=== PATIENT | male | born 1950 | race Caucasian/White ===

== ENCOUNTER 2019-04-05 22:21 | Emergency (ER) | payer OTHER ==
[~2019-04-05] VITALS: Ht 182.9 cm; Wt 84.4 kg
--- OUTSIDE RECORDS SUMMARY | 2019-04-05 22:24 | XMS REPORT | Summary of Care ---
Author Author [facility] Address Unknown Phone Unavailable Encounter HQ Encntr_alias(FIN) [id number] Date(s): 12/08/15 - 12/08/15 [address] [place], [place] [address] Discharge Disposition: Home Attending Physician: Eric Arrington MD Referring Physician: Eric Arrington MD Vital Signs No data available for this section Problem List No data available for this section Allergies, Adverse Reactions, Alerts Substance Reaction Severity Status NKDA Active Medications No data available for this section Results No data available for this section Immunizations No data available for this section Procedures No data available for this section Social History Social History Type Response Smoking Status Never smoker; Exposure to Tobacco Smoke None; Cigarette Smoking Last 365 Days No; Reg Smoking Cessation Counseling No Assessment and Plan No data available for this section
--- OUTSIDE RECORDS SUMMARY | 2019-04-05 22:24 | XMS REPORT | CCD ---
Author Author Auto Generated Organization [facility] Address Unknown Phone Unavailable Care Team Providers Care Hand Tool Filer Name Role Phone Eric Arrington RP Allergies, Adverse Reactions, Alerts Substance Reaction Status NKDA Active
--- OUTSIDE RECORDS SUMMARY | 2019-04-05 22:24 | XMS REPORT | Summary of Care ---
Author Organization Unknown Address Unknown Phone Unavailable Encounter HQ Asaf_kale(CLIVE) [id number] Date(s): 03/25/14 - 03/25/[address] [address] [facility] Discharge Disposition: Home Physician Attending: Eric Arrington MD Physician_Referring: Eric Arrington MD Reason for Visit F/U Vital Signs Most recent to 1 oldest [Reference Range]: Height 182.88 cm (03/25/14 3:11 PM) Systolic Blood 132 mmHg Pressure [90-140 (03/25/14 3:11 PM) mmHg] Diastolic Blood 77 mmHg Pressure [60-90 (03/25/14 3:11 PM) mmHg] Respiratory Rate 16 BRMIN [14-20 BRMIN] (03/25/14 3:11 PM) Peripheral Pulse 64 bpm Rate [60-100 bpm] (03/25/14 3:11 PM) Weight 98.636 kg (03/25/14 3:11 PM) Body Mass Index 29.49 m2 (03/25/14 3:11 PM) Problem List No data available for this section Allergies, Adverse Reactions, Alerts Substance Reaction Severity Status NKDA Active Medications No data available for this section Medications Administered During Your Visit No data available for this section Immunizations No data available for this section Social History Social History Type Response Smoking Status Never smoker, Exposure to Tobacco Smoke None, Cigarette Smoking Last 365 Days No, Reg Smoking Cessation Counseling No
--- OUTSIDE RECORDS SUMMARY | 2019-04-05 22:24 | XMS REPORT | Summary of Care ---
Author Author [facility] Address Unknown Phone Unavailable Encounter HQ Encntr_alias(FIN) [id number] Date(s): 10/04/16 - 10/04/16 [address] [place], [place] [address] Discharge Disposition: Home or Self Care Attending Physician: Eric Arrington MD Referring Physician: [...]
--- OUTSIDE RECORDS SUMMARY | 2019-04-05 22:24 | XMS REPORT | Summary of Care ---
Author Organization Unknown Address Unknown Phone Unavailable Encounter HQ Encntr_kale([facility]) [id number] Date(s): 02/11/14 - 02/11/[address] [address] [place] Discharge Disposition: Home Physician Attending: Eric Arrington MD Physician_Referring: Eric Arrington MD Reason for Visit Problem List No data available for this section Allergies, Adverse Reactions, Alerts Substance Reaction Severity Status NKDA Active Medications No data available for this section Medications Administered During Your Visit No data available for this section Immunizations No data available for this section
--- OUTSIDE RECORDS SUMMARY | 2019-04-05 22:24 | XMS REPORT | Clinical Summary ---
Author Author [facility] Address Unknown Phone Unavailable Care Team Providers Care Coordinate Measuring Machine Technician Name Role Phone Asked, No Pcp PCP Unavailable Allergies No Known Allergies Medications End Date Status Medication Sig Dispensed Refills Start Date Active glipiZIDE (GLUCOTROL) 10 Take 10 mg by 0 MG tablet mouth 2 (two) times a day before meals. Active clindamycin (CLEOCIN) 300 Take 300 mg 0 MG capsule by mouth 3 (three) times a day. Active lisinopril Take 2.5 mg 0 (PRINIVIL,ZESTRIL) 2.5 MG by mouth tablet daily. Active rOPINIRole (REQUIP) 0.5 Take 0.5 mg 0 MG tablet by mouth 3 (three) times a day. Active atorvastatin (LIPITOR) 40 Take 40 mg by 0 MG tablet mouth every evening. Active atenolol (TENORMIN) 50 MG Take 50 mg by 0 tablet mouth daily. Active mupirocin (BACTROBAN) 2 % Apply 0 cream topically 3 (three) times a day. Active ketoconazole (NIZORAL) 2 Apply 0 % cream topically daily. Active metFORMIN (GLUCOPHAGE) Take 1,000 mg 0 1000 MG tablet by mouth 2 (two) times a day with meals. Active lisinopril Take 5 mg by 0 (PRINIVIL,ZESTRIL) 5 mg mouth every tablet morning. 10/24/2018 Discontinued carbidopa-levodopa Take 1 tablet 0 (SINEMET) 25-100 mg per by mouth 3 tablet (three) times a day. 10/31/2018 Discontinued cholecalciferol, vitamin Take by 0 D3, (VITAMIN D3 ORAL) mouth. 10/31/2018 Discontinued aspirin (ECOTRIN) 81 MG Take 81 mg by 0 enteric coated tablet mouth daily. 10/31/2018 Discontinued docosahexanoic acid/epa Take by 0 (FISH OIL ORAL) mouth. 10/31/2018 Discontinued multivitamin with Take 1 tablet 0 minerals tablet by mouth daily. 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 Pre-Admit Pre-Admission Testing Testing Appointment Teo Langford MD Spastic quadriparesis (HCC) (Primary Dx) 10/11/2018 Transcribe Neurosurgery Orders Teo Langford MD Spastic quadriparesis (HCC) (Primary Dx); Malfunction of intrathecal infusion pump, initial encounter 10/08/2018 Office Visit Neurosurgery after 04/04/2018 Social History Date Tobacco Use Types Packs/Day Years Used Never Smoker Smokeless Tobacco: Never Used Alcohol Use Drinks/Week oz/Week Comments No Sex Assigned at Date Recorded Not on file Industry Job Start Date Occupation Not on file Not on file Not on file Travel End Travel History Travel Start No recent travel history available. Last Filed Vital Signs Time Taken Vital Sign Reading 10/24/2018 11:05 AM LAPPING MACHINE TENDER Blood Pressure 168/70 10/24/2018 10:40 AM LAPPING MACHINE TENDER Pulse 58 10/24/2018 10:40 AM LAPPING MACHINE TENDER Temperature 36.4 C (97.6 F) 10/24/2018 10:40 AM LAPPING MACHINE TENDER Respiratory Rate 16 10/24/2018 10:40 AM LAPPING MACHINE TENDER Oxygen Saturation 99% - Inhaled Oxygen - Concentration 10/23/2018 12:00 PM LAPPING MACHINE TENDER Weight 87.5 kg (193 lb) 10/23/2018 12:00 PM LAPPING MACHINE TENDER Height 182.9 cm (6') 10/23/2018 12:00 PM LAPPING MACHINE TENDER Body Mass Index 26.18 Plan of Treatment Health Maintenance Due Date Last Done Comments COLONOSCOPY SCREENING 2000 SHINGLES VACCINES (#1) 2000 65+ PNEUMOCOCCAL VACCINE 11/10/2015 06/20/2016, 06/01/2015 (2 of 2 - PPSV23) INFLUENZA VACCINE 04/11/2019 05/16/2018, 05/18/2017, 05/10/2016, Additional history exists Implants Device Identifier Shelf Expiration Date Model / Serial / Lot Implanted Type Area Manufactur er 09/07/2017 [id number] / [id number] / [id number] Pump Infsn Synchromed Ii W/ Fltr Neurosurgi Right: Abdomen, [employer] Sut Loop Prgrmbl Rsvr 40ml - emmy Lower Quadrant NEUROMODUL [id number] - [id number] Implants ATION Implanted: Qty: 1 on 04/05/2016 by Danyel Greer Jr., MD Procedures Comments Procedure Name Priority Date/Time Associated Diagnosis ECG PRE/POST OP Routine 10/24/2018 Preop testing 10:58 AM LAPPING MACHINE TENDER ESTIMATED GFR Routine 10/24/2018 10:47 AM LAPPING MACHINE TENDER HEMOGLOBIN A1C Routine 10/24/2018 Preop testing 10:47 AM LAPPING MACHINE TENDER COMPREHENSIVE METABOLIC Routine 10/24/2018 Preop testing PANEL 10:47 AM LAPPING MACHINE TENDER HC COMPLETE BLD COUNT Routine 10/24/2018 Preop testing W/AUTO DIFF 10:47 AM LAPPING MACHINE TENDER after 04/04/2018 Results * ECG Pre/Post Op (10/24/2018 10:58 AM LAPPING MACHINE TENDER) Ventricular 51 [facility] rate Atrial rate 51 [facility] OR interval 152 [facility] QRSD interval 100 [facility] QT interval 412 [facility] QTC interval 379 [facility] P axis 1 29 [facility] QRS axis 1 -26 [facility] T wave axis 49 [facility] EKG impression Sinus bradycardia-Otherwise [facility] normal ECG-No previous ECGs available- Specimen Narrative Performed At Performing Organization Address City/State/Zipcode Phone Number [facility] MUSE [address] [place] [address] * Estimated GFR (10/24/2018 10:47 AM LAPPING MACHINE TENDER) Estimated GFR >=90 mL/min/1.73 m2 DRIFT Comment: [facility] rpretation G1 >=90 Normal or high G2 60-89Mildly decreased [id number] Mildly to moderately decreased [id number] Moderately to severely decreased G4 15-29Severely decreased G5 <15Kidney failure The eGFR was calculated using the Chronic Kidney Disease Epidemiology Collaboration (CKD-EPI) equation. Interpretation is based on recommendations of the National Kidney Foundation-Kidney Disease Outcomes Quality Initiative (NKF-KDOQI) published in 2014. Specimen Plasma specimen Performing Organization Address City/State/Zipcode Phone Number [facility] [place] [address] [place] [address] PATHOLOGY AND GENOMIC MEDICINE [id number] [place] [address] * CBC with platelet and differential (10/24/2018 10:47 AM LAPPING MACHINE TENDER) WBC 10.75 4.50 - 11.00 k/uL [facility] RBC 4.06 (L) 4.40 - 6.00 m/uL [facility] HGB 12.4 (L) 14.0 - 18.0 g/dL [facility] HCT 38.4 (L) 41.0 - 51.0 % [facility] MCV 94.6 82.0 - 100.0 fL [facility] MCH 30.5 27.0 - 34.0 pg [facility] MCHC 32.3 31.0 - 37.0 g/dL [facility] RDW - SD 46.9 37.0 - 55.0 fL [facility] MPV 10.3 8.8 - 13.2 fL [facility] Platelet count 307 150 - 400 k/uL [facility] Nucleated RBC 0.00 /100 WBC [facility] Neutrophils 76.3 (H) 39.0 - 69.0 % [facility] Lymphocytes 14.3 (L) 25.0 - 45.0 % [facility] Monocytes 7.3 0.0 - 10.0 % [facility] Eosinophils 0.9 0.0 - 5.0 % [facility] Basophils 0.6 0.0 - 1.0 % [facility] Immature 0.6Comment: "Immature 0.0 - 1.0 % DRIFT granulocytes granulocytes" (promyelocytes, [facility] myelocytes, metamyelocytes) HOSPITAL Specimen Blood Performing Organization Address City/State/Zipcode Phone Number [facility] [place]PARTMENT [address] [place] [address] PATHOLOGY AND GENOMIC MEDICINE [address] [address] [facility] * Hemoglobin A1c (10/24/2018 10:47 AM LAPPING MACHINE TENDER) Hemoglobin A1C 9.2 (H) 4.0 - 5.6 % DRIFT Comment: [place] HbA1c cutoffs for diagnosing HOSPITAL diabetes: 4.0% - 5.6%=normal 5.7% - 6.4%=increased risk for diabetes (prediabetes) >=6.5%=diabetes Goals for glycemic control (ADA 2016) < 7.0%Target for non adults with diabetes. More or less stringent targets may be appropriate for individual patients. <7.5% Target for Children and adolescents with type 1 diabetes. Specimen Blood Performing Organization Address City/State/Zipcode Phone Number [facility] DEPARTMENT OF [address] [place] [address] PATHOLOGY AND GENOMIC MEDICINE [address] [address] [facility] * Comprehensive metabolic panel (10/24/2018 10:47 AM LAPPING MACHINE TENDER) Sodium 133 (L) 135 - 148 mEq/L [facility] Potassium 4.2 3.5 - 5.0 mEq/L [facility] Chloride 95 (L) 98 - 112 mEq/L [facility] CO2 28 24 - 31 mEq/L [facility] Anion gap 10@ANIO 7 - 15 mEq/L [facility] BUN 13 8 - 23 mg/dL [facility] Creatinine 0.67 (L) 0.70 - 1.20 mg/dL [facility] Glucose 225 (H) 65 - 99 mg/dL [facility] Calcium 9.5 8.8 - 10.2 mg/dL [facility] Protein 6.9 6.3 - 8.3 g/dL DRIFT Comment: [facility] HOSPITAL 4.6-7.0 g/dL 1 week 4.4-7.6 g/dL 7 months-1year 5.1-7.3 g/dL 1-2 years5.6-7 .5 g/dL >3 years6.0-8 .0 g/dL 18-150 6.3-8.3 g/dL Albumin 3.5 3.5 - 5.0 g/dL [facility] A/G ratio 1.0 0.7 - 3.8 [facility] Alkaline 85 40 - 129 U/L DRIFT phosphatase [facility] AST 17 10 - 50 U/L [facility] ALT 20 5 - 50 U/L [facility] Total bilirubin 0.8 0.0 - 1.2 mg/dL [facility] Specimen Plasma specimen Performing Organization Address City/State/Zipcode Phone Number [facility] [place]PARTMENT [place] [address] [place] [address] PATHOLOGY AND GENOMIC MEDICINE [address] [address] HOSPITAL after 04/04/2018 Insurance Type Payer Benefit Subscriber ID Effective Phone Address Plan / Dates Group HMO [employer] TEX[employer] xxxxxxxxx 2015-P JULIA chaney Advance Directives Patient has advance care planning documents on file. For more information, juanjose webb contact: [facility] [address]
--- OUTSIDE RECORDS SUMMARY | 2019-04-05 22:24 | XMS REPORT | Summary of Care ---
Author Organization Unknown Address Unknown Phone Unavailable Encounter HQ Encntr_alisis([facility]) [id number] Date(s): 01/07/15 - 01/07/[address] Discharge Disposition: Home Physician Attending: Eric Arrington MD Physician_Referring: Eric Arrington MD Vital Signs No data [...]
--- OUTSIDE RECORDS SUMMARY | 2019-04-05 22:24 | XMS REPORT | Summary of Care ---
Author Author [facility] Organization [facility] Address Unknown Phone Unavailable Encounter HQ Susan(FIN) [id number] Date(s): 10/23/18 - 10/23/18 [id number] [place], [place] [address] Discharge Disposition: Home or Self Care Attending Physician: Eric Arrington MD Referring Physician: Eric Arrington MD Vital Signs Most recent to 1 oldest [Reference Range]: Height 182.88 cm (10/23/18 1:35 PM) Blood Pressure 177/75 mmHg [90-140/60-90 mmHg] *HI* (10/23/18 1:35 PM) Respiratory Rate 20 BRMIN [14-20 BRMIN] (10/23/18 1:35 PM) Peripheral Pulse 65 bpm Rate [60-100 bpm] (10/23/18 1:35 PM) Weight 87.727 kg (10/23/18 1:35 PM) Body Mass Index 26.23 m2 (10/23/18 1:35 PM) Problem List Condition Effective Dates Status Health Status Informant Skin rash(Confirmed) Active Spasticity(Confirmed Active ) Neuropathy(Confirmed Active ) Quadriplegia, C1-C4 Active incomplete(Confirmed ) Frequent Active falls(Confirmed) Other muscle Active spasm(Confirmed) Allergies, Adverse Reactions, Alerts Substance Reaction Severity Status NKDA Active Medications Requip 2 mg oral tablet 2 mg=1 tab, PO, TID Start Date: 10/23/18 Status: Ordered Results No data available for this section Immunizations No data available for this section Procedures No data available for this section Social History Social History Type Response Smoking Status Never smoker; Exposure to Tobacco Smoke None; Cigarette Smoking Last 365 Days No; Reg Smoking Cessation Counseling No entered on: 10/23/18 Assessment and Plan No data available for this section
--- OUTSIDE RECORDS SUMMARY | 2019-04-05 22:24 | XMS REPORT | Summary of Care ---
Author Organization Unknown Address Unknown Phone Unavailable Encounter HQ Encntr_alias([facility]) [id number] Date(s): 12/23/14 - 12/23/[address] Discharge Disposition: Home Physician Attending: Eric [...]
--- OUTSIDE RECORDS SUMMARY | 2019-04-05 22:24 | XMS REPORT | Summary of Care ---
Author Author [facility] Address Unknown Phone Unavailable Encounter HQ Asaf_kale(FIN) [id number] Date(s): 08/29/17 - 08/29/17 [address] [place], [place] [address] [phone] Discharge Disposition: Home or Self Care Attending Physician: Eric Arrington MD Referring Physician: Eric Arrington MD Vital Signs No data available for this section Problem List Condition Effective Dates Status Health Status Informant Spasticity(Confirmed Active ) Neuropathy(Confirmed Active ) Quadriplegia, C1-C4 Active incomplete(Confirmed ) Frequent Active falls(Confirmed) Allergies, Adverse Reactions, Alerts Substance Reaction Severity [...]
--- OUTSIDE RECORDS SUMMARY | 2019-04-05 22:24 | XMS REPORT | Summary of Care ---
Author Author [facility] Organization [facility] Address Unknown Phone Unavailable Encounter HQ Asaf_kale(FIN) [id number] Date(s): 08/17/18 - 08/17/18 [facility] [address] [place] [address]- [phone] Encounter Diagnosis Cramp and spasm (Final) - 08/23/18 Other injury of unspecified body region, sequela (Final) - Discharge Disposition: Home or Self Care Attending Physician: Eric Arrington MD Referring Physician: Eric Arrington MD Vital Signs No data available for this section Problem List Condition Effective Dates Status Health Status Informant Skin rash(Confirmed) Active Spasticity(Confirmed Active ) Neuropathy(Confirmed Active ) Quadriplegia, C1-C4 Active incomplete(Confirmed ) Frequent Active falls(Confirmed) Other muscle Active spasm(Confirmed) Allergies, Adverse Reactions, Alerts No Known Medication Allergies Medications No data available for this section [...]
--- OUTSIDE RECORDS SUMMARY | 2019-04-05 22:24 | XMS REPORT | Continuity of Care Document ---
Author Author [facility] Address Unknown Phone Unavailable Care Team Providers Care Metal Stamping Machine Operator Name Role Phone [employer] Unavailable Unavailable Problems Problem Status Onset Date Classification Date Reported Comments Source Cramp and spasm 08/24/2018 03/07/2019 [facility] REFILL: 2000/20 ML AD: 02/11/19 Active 08/24/2018 [facility] 2000/20 ML AD: 02/11/19 Active 08/23/2018 [facility] FOLLOW UP Active 08/20/2018 [facility] REFILL 2000/20ML AD: 02/28/19 Active 02/20/2018 [facility] REFILL 2000/20ML AD: 02/23/18 Active 08/30/2017 [facility] REFILL 2000/40ML AD: 09/15/2017 Active 03/22/2017 [facility] 2000/20 ALARM DATE 03/31/17 Active 10/06/2016 [facility] SPA RE-EVAL Active 09/11/2016 [facility] 2000/20 Active 12/08/2015 [facility] DOSE ADJUSTMENT Active 12/23/2014 [facility] PUMP REFILL Active 02/11/2014 [facility] F/U Active 02/10/2014 [facility] SPASTICITY Active 03/15/2013 [facility] Spasticity Active Problem 03/07/2019 [facility] Neuropathy Active Problem 03/07/2019 [facility] Quadriplegia, C1-C4 incomplete Active Problem 03/07/2019 [facility] Frequent falls Active Problem 03/07/2019 [facility] Other injury of unspecified body region, sequela 03/07/2019 [facility] Skin rash Active Problem 03/07/2019 [facility] Other muscle spasm Active Problem 03/07/2019 [facility] FOLLOW-UP EXAM NOS Active [facility] OTHER MUSCLE SPASM Active [facility] OTHER ABNORMAL INVOLUNTARY MOVEMENTS Active [facility] Medications Medication Details Route Status Patient Instructions Ordering Provider Order Date Source ropinirole 2 MG Oral Tablet [Requip] 2 mg=1 tab, PO, TID Active 10/23/2018 [facility] 24 HR Metformin hydrochloride 1000 MG Extended Release Tablet 1,000 mg=1 tab, PO, BID, # 120 tab, 0 Refill(s) Active 06/03/2015 [facility] Home Medication Carbadopa Levadopa 25/100mg PO BID, Refill(s) 0Special Instructions: Carbadopa Levadopa 25/100mg PO BID Active 06/03/2015 [facility] Atenolol 50 MG Oral Tablet 50 mg=1 tab, PO, Daily, # 30 tab, 0 Refill(s) Active 06/03/2015 [facility] Glipizide 10 MG Oral Tablet 10 mg=1 tab, PO, Before Breakfast, # 30 tab, 0 Refill(s) Active 06/03/2015 [facility] Allergies, Adverse Reactions, Alerts Substance Category Reaction Severity Reaction type Status Date Reported Comments Source No Known Medication Allergies Assertion Drug allergy [facility] Immunizations No Data Provided for This Section Results No Data Provided for This Section Pathology Reports No Data Provided for This Section Diagnostic Reports No Data Provided for This Section Consultation Notes No Data Provided for This Section Discharge Summaries No Data Provided for This Section History and Physicals No Data Provided for This Section Vital Signs Vital Sign Value Date Comments Source Height 182.88 cm 10/23/2018 [facility] BMI Calculated 26.23 10/23/2018 [facility] Weight 87.727 10/23/2018 [facility] Heart Rate 65 10/23/2018 [facility] Respitory Rate 20 10/23/2018 [facility] Systolic (mm Hg) 177 10/23/2018 [facility] Diastolic (mm Hg) 75 10/23/2018 [facility] Heart Rate 61 10/25/2016 [facility] Systolic (mm Hg) 158 10/25/2016 [facility] Diastolic (mm Hg) 87 10/25/2016 [facility] Height 182.88 cm 10/25/2016 [facility] Weight 95 10/25/2016 [facility] BMI Calculated 28.4 10/25/2016 [facility] Heart Rate 73 10/25/2016 [facility] Systolic (mm Hg) 174 10/25/2016 [facility] Diastolic (mm Hg) 90 10/25/2016 [facility] Respitory Rate 20 10/25/2016 [facility] Height 182.88 cm 06/03/2015 [facility] Respitory Rate 18 06/03/2015 [facility] Weight 90 06/03/2015 [facility] BMI Calculated 26.91 06/03/2015 [facility] Systolic (mm Hg) 142 06/03/2015 [facility] Diastolic (mm Hg) 87 06/03/2015 [facility] Heart Rate 69 06/03/2015 [facility] Systolic (mm Hg) 132 03/25/2014 [facility] Respitory Rate 16 03/25/2014 [facility] Diastolic (mm Hg) 77 03/25/2014 [facility] Heart Rate 64 03/25/2014 [facility] BMI Calculated 29.49 03/25/2014 [facility] Weight 98.636 03/25/2014 [facility] Height 182.88 cm 03/25/2014 [facility] Encounters Location Location Details Encounter Type Encounter Number Reason For Visit Attending Provider ADM Date DC Date Status Source Outpatient [id number] [facility] 11/01/2011 Active [facility] Outpatient [id number] [facility] 04/17/2012 Active [facility] Outpatient [id number] [facility] 10/02/2012 Active [facility] Outpatient [id number] [facility] 03/20/2013 Active [facility] Outpatient [id number] [facility] 08/27/2013 Active [facility] Outpatient [id number] [facility] 02/11/2014 02/12/2014 [facility] Outpatient [id number] [facility] 03/25/2014 03/26/2014 [facility] [place] [facility] Outpatient [id number] [facility] 07/29/2014 07/30/2014 [facility] [place] [facility] Outpatient [id number] [facility] 12/23/2014 12/24/2014 [facility] [place] [facility] Outpatient [id number] [facility] 01/07/2015 01/08/2015 [facility] Outpatient [id number] [facility] 06/03/2015 06/04/2015 [facility] Outpatient [id number] [facility] 06/24/2015 06/25/2015 [facility] Outpatient [id number] [facility] 12/08/2015 12/09/2015 [facility] Outpatient [id number] [facility] 10/04/2016 10/05/2016 [facility] Outpatient [id number] [facility] 10/25/2016 10/26/2016 [facility] Outpatient [id number] [facility] 03/21/2017 03/22/2017 [facility] Outpatient [id number] [facility] 08/29/2017 08/30/2017 [facility] Outpatient [id number] [facility] 02/16/2018 02/17/2018 [facility] TR Baclofen Related (BACR) Outpatient [id number] [facility] 08/17/2018 08/18/2018 [facility] Outpatient [id number] [facility] 10/23/2018 10/24/2018 [facility] TR Baclofen Related (BACR) Outpatient [id number] [facility] 02/05/2019 02/06/2019 [facility] Procedures No Data Provided for This Section Assessment and Plan No Data Provided for This Section Plan of Care No Data Provided for This Section Social History Social History Date Source Social History TypeResponse Smoking Status Never smoker; Exposure to Tobacco Smoke None; Cigarette Smoking Last 365 Days No; Reg Smoking Cessation Counseling No entered on: 10/23/18 10/23/2018 [facility] Family History No Data Provided for This Section Advance Directives No Data Provided for This Section Functional Status No Data Provided for This Section
--- OUTSIDE RECORDS SUMMARY | 2019-04-05 22:24 | XMS REPORT | Summary of Care ---
Author Author [facility] Address Unknown Phone Unavailable Encounter HQ Asaf_kale(FIN) [id number] Date(s): 10/25/16 - 10/25/16 [facility] [address] [place], [place] [address] Discharge Disposition: Home or Self Care Attending Physician: Eric Arrington MD Referring Physician: Eric Arrington MD Vital Signs Most recent to 1 2 oldest [Reference Range]: Height 182.88 cm (10/25/16 3:42 PM) Blood Pressure 158/87 mmHg 174/90 mmHg [90-140/60-90 mmHg] *HI* *HI* (10/25/16 4:16 PM) (10/25/16 3:42 PM) Respiratory Rate 20 BRMIN [14-20 BRMIN] (10/25/16 3:42 PM) Peripheral Pulse 61 bpm 73 bpm Rate [60-100 bpm] (10/25/16 4:16 PM) (10/25/16 3:42 PM) Weight 95 kg (10/25/16 3:42 PM) Body Mass Index 28.4 m2 (10/25/16 3:42 PM) Problem List Condition Effective Dates Status Health Status Informant Spasticity(Confirmed Active ) Neuropathy(Confirmed Active ) Quadriplegia, C1-C4 Active incomplete(Confirmed ) Frequent Active falls(Confirmed) Allergies, Adverse Reactions, Alerts Substance Reaction Severity Status NKDA Active Medications No Known Medications Results No data available for this section Immunizations No data available for this section Procedures No data available for this section Social History Social History Type Response Smoking Status Never smoker; Exposure to Tobacco Smoke None; Cigarette Smoking Last 365 Days No; Reg Smoking Cessation Counseling No Assessment and Plan No data available for this section
--- OUTSIDE RECORDS SUMMARY | 2019-04-05 22:24 | XMS REPORT | Summary of Care ---
Author Author [facility] Address Unknown Phone Unavailable Encounter HQ Encntr_alisis(FIN) [id number] Date(s): 03/21/17 - 03/21/17 [place] [id number] [place], [place] [address] Discharge Disposition: Home or Self Care [...]
--- OUTSIDE RECORDS SUMMARY | 2019-04-05 22:24 | XMS REPORT | CCD ---
Author Author Auto Generated Organization [facility] Address Unknown Phone Unavailable Care Team Providers Care Ambulance Assistant Name Role Phone Eric Arrington RP Allergies, Adverse Reactions, Alerts Substance Reaction Status NKDA Active
--- OUTSIDE RECORDS SUMMARY | 2019-04-05 22:24 | XMS REPORT | CCD ---
Author Author Auto Generated Organization [facility] Address Unknown Phone Unavailable Care Team Providers Care Telecom Specialist Name Role Phone Eric Arrington RP Allergies, Adverse Reactions, Alerts Substance Reaction Status NKDA Active
--- OUTSIDE RECORDS SUMMARY | 2019-04-05 22:24 | XMS REPORT | Summary of Care ---
Author Author [facility] Organization [facility] Address Unknown Phone Unavailable Encounter HQ Arenntr_kale(FIN) [id number] Date(s): 02/05/19 - 02/05/19 [facility] [address] [place] [address]- [phone] Discharge Disposition: Home or Self Care Attending [...]
--- OUTSIDE RECORDS SUMMARY | 2019-04-05 22:24 | XMS REPORT | Summary of Care ---
Author Author [facility] Address Unknown Phone Unavailable Encounter HQ Encntr_alias(FIN) [id number] Date(s): 06/24/15 - 06/24/15 [place] [id number] [place] [id number] Discharge Disposition: Home Attending Physician: Eric Arrington [...]
--- OUTSIDE RECORDS SUMMARY | 2019-04-05 22:24 | XMS REPORT | Summary of Care ---
Author Author [facility] Address Unknown Phone Unavailable Encounter MILTON Davis(CLIVE) [id number] Date(s): 06/03/15 - 06/03/[address] [phone] Discharge Disposition: Home Attending Physician: Eric Arrington MD Referring Physician: Eric Arrington MD Vital Signs Most recent to 1 oldest [Reference Range]: Height 182.88 cm (06/03/15 10:35 AM) Most recent to 1 oldest [Reference Range]: Blood Pressure 142/87 mmHg [90-140/60-90 mmHg] *HI* (06/03/15 10:35 AM) Most recent to 1 oldest [Reference Range]: Respiratory Rate 18 BRMIN [14-20 BRMIN] (06/03/15 10:35 AM) Most recent to 1 oldest [Reference Range]: Peripheral Pulse 69 bpm Rate [60-100 bpm] (06/03/15 10:35 AM) Most recent to 1 oldest [Reference Range]: Weight 90 kg (06/03/15 10:35 AM) Most recent to 1 oldest [Reference Range]: Body Mass Index 26.91 m2 (06/03/15 10:35 AM) Problem List No data available for this section Allergies, Adverse Reactions, Alerts Substance Reaction Severity Status NKDA Active Medications atenolol 50 mg oral tablet 50 mg=1 tab, PO, Daily, # 30 tab, 0 Refill(s) Start Date: 06/03/15 Status: Ordered glipiZIDE 10 mg oral tablet 10 mg=1 tab, PO, Before Breakfast, # 30 tab, 0 Refill(s) Start Date: 06/03/15 Status: Ordered Home Medication Carbadopa Levadopa 25/100mg PO BID, Refill(s) 0 Special Instructions: Carbadopa Levadopa 25/100mg PO BID Start Date: 06/03/15 Status: Ordered metFORMIN 1000 mg oral tablet, extended release 1,000 mg=1 tab, PO, BID, # 120 tab, 0 Refill(s) Start Date: 06/03/15 Status: Ordered Results No data available for [...]
--- OUTSIDE RECORDS SUMMARY | 2019-04-05 22:24 | XMS REPORT | Summary of Care ---
Author Author [facility] Organization [facility] Address Unknown Phone Unavailable Encounter HQ Encntr_alisis(FIN) [id number] Date(s): 02/16/18 - 02/16/18 [place] [address] [place], [place] [address] Discharge Disposition: Home or Self Care Attending [...] Reg Smoking Cessation Counseling No entered on: 10/25/16 Assessment and Plan No data available for this section
--- OUTSIDE RECORDS SUMMARY | 2019-04-05 22:24 | XMS REPORT | CCD ---
Author Author Auto Generated Organization [facility] Address Unknown Phone Unavailable Care Team Providers Care Continuous Pickling Line Pickler Name Role Phone Eric Arrington RP Allergies, Adverse Reactions, Alerts Substance Reaction Status NKDA Active
[2019-04-06] MEDS ORDERED: CEFTRIAXONE SOD 1 GM VIAL IV SCH (00:15)
[2019-04-06] MEDS ORDERED: SODIUM CHLORIDE 0.9% 100 ML 100 ML ONE (01:19)
[2019-04-06] MEDS ORDERED: CEFTRIAXONE SOD 1 GM VIAL ONE (01:19)
--- NOTE | 2019-04-06 01:19 | Diagnostic Imaging Report ---
EXAM: Left Lower Extremity Venous Duplex Ultrasound INDICATION: ^[id number] ^[id number] COMPARISON: None TECHNIQUE: Dueñas scale, color Doppler and spectral waveform analysis of the left lower extremity deep venous system was performed. FINDINGS: Common Femoral: Fully compressible with normal spontaneous waveforms. Proximal Greater Saphenous: Fully compressible. Femoral: Fully compressible with normal spontaneous waveforms. Normal response to augmentation. Proximal Deep Femoral: Normal spontaneous waveforms. Popliteal: Fully compressible with normal spontaneous waveforms. IMPRESSION: No evidence of deep venous thrombosis above the left calf. Signed by: Dr. Kodak Wetzel MD on 04/06/2019 1:16 AM
== END 2019-04-06 01:41 | disposition home or self-care (01) ==
LOC: FSED 22:21
DX: L03.116 Cellulitis of left lower limb (principal)
CPT/HCPCS: 80053; 85025; 87040; 93971; 99284; J0696

== ENCOUNTER 2019-11-19 19:25 | Emergency (ER) | payer MEDICARE, OTHER ==
[~2019-11-19] VITALS: Ht 182.9 cm; Wt 84.4 kg
--- OUTSIDE RECORDS SUMMARY | 2019-11-19 19:28 | XMS REPORT ---
Author Author [facility] Address Unknown Phone Unavailable Care Team Providers Care Torch Heater Name Role Phone NANDO PHILLIPS Unavailable Unavailable KAUSHAL MATA Unavailable Unavailable Problems This patient has no known problems. Allergies, Adverse Reactions, Alerts This patient has no known allergies or adverse reactions. Medications This patient has no known medications. Results Test Description Test Time Test Comments Text Results Atomic Results Result Comments TISSUE EXAM 2019-07-01 17:37:00 Surgical Pathology Report Case: [id number] Authorizing Provider: Luis Phillips MD Collected: 06/21/2019 1426 Ord ering Location: [facility] Received: 06/21/2019 1515 SERVICES Pathologist: Dawit Downs MD Specimen: Explant, For Identification only VERTEBRAL COLUMN, REMOVAL:DORSAL COLUMN STIMULATOR DEVICE (GROSS EXAMINATION ONLY) Signing Pathologist Direct Phone Line: [phone] signed by Dawit Downs MD on 07/01/2019 at 5:37 [id number], for identification onlyThe specimen is a metal plastic device from [employer]. It is 5 x 5 x 5 up to 0.6 cm and bears the number [id number]. Gross only. HL/pl POCT-GLUCOSE METER 2019-06-21 16:46:00 POC-GLUCOSE METER (BEAKER) (test toju=8204) 124 mg/dL 70-110 TESTED AT [facility] [address] [place] [id number] BASIC METABOLIC [id number] 08:56:00* Test Item Value Reference Range Comments SODIUM (BEAKER) (test ifiy=448) 136 meq/L 136-145 POTASSIUM (BEAKER) (test lvwz=067) 4.4 meq/L 3.5-5.1 Specimen slightly hemolyzed CHLORIDE (BEAKER) (test efdf=038) 99 meq/L 98-107 CO2 (BEAKER) (test wnrw=064) 26 meq/L 22-29 BLOOD UREA NITROGEN (BEAKER) (test golc=121) 10 mg/dL 7-21 CREATININE (BEAKER) (test falr=833) 0.78 mg/dL 0.57-1.25 Specimen slightly hemolyzed GLUCOSE RANDOM (BEAKER) (test cogc=231) 105 mg/dL 70-105 CALCIUM (BEAKER) (test vlmk=827) 9.8 mg/dL 8.4-10.2 EGFR (BEAKER) (test akys=1491) 99 mL/min/1.73 sq m ESTIMATED GFR IS NOT ACCURATE CREATININE CLEARANCE IN PREDICTING GLOMERULAR FILTRATION RATE. ESTIMATED GFR IS NOT APPLICABLE FOR DIALYSIS PATIENTS. POCT-GLUCOSE [id number] 08:23:00* Test Item Value Reference Range Comments POC-GLUCOSE METER (BEAKER) (test rfie=8721) 108 mg/dL 70-110 TESTED AT [facility] [address] [place] [address] EXREMEITY VEINS [id number] 01:13:00 [place] [address] Patient Name: ANGÉLICA QUEEN MR #: [id number] : 1950 Age/Sex: 68/M Req #: [id number] Adm Physician: Ordered by: KAUSHAL MATA MD Report #: [id number] Location: [facility] Room/Bed: Procedure: [id number] HOPD /US EXREMEITY VEINS UNI-HOPD Exam Date: 04/05/19 Exa m Time: 2358 REPORT STATUS: Signed EXAM: Left Lower Extremity Venous Duplex Ultrasound INDICATION: [id number] COMPARISON: None TECHNIQUE: Dueñas scale, color Doppler a nd spectral waveform analysis of the left lower extremity deep venous system w as performed. FINDINGS: Common Femoral: Fully compressible with normal spontaneous waveforms. Proximal Greater Saphenous: Fully co mpressible. Femoral: Fully compressible with normal spontaneous wa veforms. Normal response to augmentation. Proximal Deep Femoral: Normal spontaneous waveforms. Popliteal: Fully compressible wi th normal spontaneous waveforms. IMPRESSION: No evidence of deep v enous thrombosis above the left calf. Signed by: Dr. Kodak Zavala MD on 04/06/2019 1:16 AM Dictated By: KODAK ZAVALA MD 5 Transcribed By: PRICILA on 04/06/19115 COPY TO: KAUSHAL MATA MD
--- NOTE | 2019-11-19 22:00 | Diagnostic Imaging Report ---
EXAM: CT Abdomen and Pelvis without contrast INDICATION: Suprapubic and bilateral flank pain. COMPARISON: None. TECHNIQUE: Abdomen and pelvis were scanned utilizing a multidetector helical scanner from the lung base to the pubic symphysis without administration of IV contrast. Coronal and sagittal reformations were obtained. Renal stone protocol was performed. IV CONTRAST: None. ORAL CONTRAST: None. COMPLICATIONS: None RADIATION DOSE: Total DLP: 737.4 mGy*cm Estimated effective dose: (DLP x 0.015 x size factor) mSv CTDIvol has been reviewed. It is below the limits set by the Radiation Protocol Committee (RPC). FINDINGS: LINES and TUBES: None. LOWER THORAX: Scattered coronary atherosclerosis. HEPATOBILIARY: No evidence of focal lesion. No biliary ductal dilation. GALLBLADDER: Cholelithiasis without evidence of cholecystitis. There is a stone at the gallbladder neck. SPLEEN: No splenomegaly. 2.2 cm hypodense lesion in the spleen, likely a cyst. PANCREAS: No focal masses or ductal dilatation. ADRENALS: No adrenal nodules KIDNEYS/URETERS: No evidence of hydronephrosis or mass. Nonobstructing left mid and lower pole renal stones, measuring up to 4 mm. Mild nonspecific bilateral perinephric stranding. GI TRACT: No evidence of wall thickening or distension. Appendix is normal. Scattered colonic diverticulosis without CT evidence of diverticulitis. Moderate amount of stool in the colon. There is fecalization of distal small bowel loops, which may reflect slow transit. PELVIC ORGANS/BLADDER: Parkinson catheter terminates in a decompressed bladder. Mild wall thickening of the bladder. Prostate calcifications. LYMPH NODES: No lymphadenopathy. VESSELS: There is moderate atherosclerotic disease in the aorta and major arterial branches. PERITONEUM / RETROPERITONEUM: No free air or fluid. BONES AND SOFT TISSUES: No acute osseous abnormality. Right-sided spinal stimulator with lead entering the canal at L1-L2 and extending cranially into the thoracic spine. Moderate to severe degenerative disc and severe facet degenerative changes in the lower lumbar spine. Small fat-containing left inguinal hernia. Per clinical history, the patient is status post right inguinal hernia repair; this likely accounts for 2.0 cm soft tissue density near the right inguinal canal with associated high densities. CONCLUSION: Nonobstructing left sided nephrolithiasis, measuring up to 4 mm. No evidence of hydronephrosis. Poorly catheter within the bladder. Mild wall thickening of the bladder may reflect decompression or cystitis in the appropriate clinical setting. Mild nonspecific bilateral perinephric stranding which may be a normal finding or reflect infectious or inflammatory process in the appropriate clinical setting. Suggest correlation with urinalysis. Cholelithiasis including a small stone near the gallbladder neck without specific evidence of cholecystitis. Furthermore per discussion with referring physician, the patient does not have right upper quadrant pain. The above findings were discussed with Dr. Catalino Driscoll on 11/19/2019 at 9:50 PM, who responded indicating that the communication was understood. Signed by: Dr. Ander Mauricio MD on 11/19/2019 9:57 PM
[2019-11-19 22:26] VITALS: BP 168/78
== END 2019-11-19 22:27 | disposition home or self-care (01) ==
LOC: FSED 19:25
DX: R30.0 Dysuria (principal); N20.0 Calculus of kidney; K40.90 Unilateral inguinal hernia, without obstruction or gangrene, not specified as recurrent; K57.90 Diverticulosis of intestine, part unspecified, without perforation or abscess without bleeding
CPT/HCPCS: 51700; 74176; 81003; 99283

== ENCOUNTER 2020-09-01 18:06 | Inpatient (IN) | payer MEDICARE, OTHER ==
[~2020-09-01] VITALS: Ht 182.9 cm; Wt 84.4 kg
[2020-09-01] MEDS: PIPER-TAZ 3.375 GM 50 ML IV SCH ×2 (00:30→01:00)
[2020-09-01 19:07] LABS: BASOPHILS # (AUTO) 0.1 (0.0-0.1); BASOPHILS % 0.4 % (0.0-1.0); EOSINOPHILS # (AUTO) 0.1 (0.0-0.4); EOSINOPHILS % 0.8 % (0.0-6.0); HEMATOCRIT 33.4 % (38.2-49.6); LYMPHOCYTES # (AUTO) 1.4 (1.0-3.2); LYMPHOCYTES % 11.2 % (18.0-39.1); MEAN CORPUSCULAR HEMOGLOBIN 30.8 pg (28-32); MEAN CORPUSCULAR HGB CONC 32.9 g/dL (31-35); MEAN CORPUSCULAR VOLUME 93.6 fL (81-99); MONOCYTES # (AUTO) 1.2 (0.2-0.8); MONOCYTES % 10.1 % (4.4-11.3); NEUTROPHILS # (AUTO) 9.4 (2.1-6.9); NEUTROPHILS % 76.8 % (38.7-80.0); PLATELET COUNT 378 x10e3/uL (140-360); RED BLOOD COUNT 3.57 x10e6/uL (4.3-5.7)
[2020-09-01 19:17] LABS: INR 0.93; PARTIAL THROMBOPLASTIN TIME 30.6 seconds (23.8-35.5); PROTHROMBIN TIME 12.9 seconds (11.9-14.5)
[2020-09-01 19:27] LABS: ALANINE AMINOTRANSFERASE 24 IU/L (0-55); ALBUMIN 3.5 g/dL (3.5-5.0); ALBUMIN/GLOBULIN RATIO 0.9 (0.8-2.0); ALKALINE PHOSPHATASE 98 IU/L (40-150); ANION GAP 17.3 mmol/L (8-16); BLOOD UREA NITROGEN 24 mg/dL (7-26); BUN/CREATININE RATIO 28 (6-25); CALCIUM 9.2 mg/dL (8.4-10.2); CARBON DIOXIDE 26 mmol/L (22-29); CHLORIDE 96 mmol/L (98-107); CREATININE, SERUM 0.86 mg/dL (0.72-1.25); EST GLOMERULAR FILTRATION RATE > 60 ML/MIN (60-); GLUCOSE 154 mg/dL (74-118); POTASSIUM 4.3 mmol/L (3.5-5.1); SODIUM 135 mmol/L (136-145)
[2020-09-01] MEDS ORDERED: DEXTROSE 50% SYRINGE 50 ML IV PRN (20:00)
[2020-09-01] MEDS ORDERED: SODIUM CHLORIDE 0.9% 1000ML 1,000 ML IV ONE (20:00)
[2020-09-01] MEDS ORDERED: ACETAMINOPHEN 325 MG TAB PO PRN (20:00)
[2020-09-01] MEDS: INSULIN REGULAR, HUMAN 100 UNIT/1 ML 3ML VIAL SQ SCH (21:00)
[2020-09-01 21:50] VITALS: BP 132/60
[2020-09-01] MEDS: VANCOMYCIN 1GM/NS 250 ML 250 ML IV SCH (22:30)
[2020-09-02] VITALS (9 sets, daily range): BP systolic 106–176; BP diastolic 47–87
[2020-09-02] MEDS: PIPER-TAZ 3.375 GM 50 ML IV SCH ×4 (00:30→22:58)
[2020-09-02] MEDS ORDERED: LEVOTHYROXINE50 MCG PO (01:39)
[2020-09-02] MEDS ORDERED: GABAPENTIN300 MG PO (01:39)
[2020-09-02] MEDS ORDERED: METFORMIN HCL1000 MG PO (01:39)
[2020-09-02] MEDS ORDERED: ROPINIROLE HCL1 MG PO (01:39)
[2020-09-02] MEDS ORDERED: LIPITOR20 MG PO (01:39)
[2020-09-02] MEDS ORDERED: TIZANIDINE HCL4 MG PO (01:39)
[2020-09-02] MEDS ORDERED: LISINOPRIL2.5 MG PO (01:39)
[2020-09-02] MEDS ORDERED: LISINOPRIL5 MG PO (01:39)
[2020-09-02] MEDS ORDERED: GLIPIZIDE5 MG PO (01:39)
[2020-09-02] MEDS ORDERED: FENTANYL1 EAC1 TOP (01:39)
[2020-09-02] MEDS ORDERED: JANUVIA100 MG PO (01:39)
[2020-09-02] MEDS ORDERED: PIOGLITAZONE HC15 MG PO (01:39)
[2020-09-02] MEDS ORDERED: ATENOLOL50 MG PO (01:39)
[2020-09-02] MEDS: TIZANIDINE HCL 4 MG TAB PO PRN ×2 (02:10→11:55)
[2020-09-02] MEDS: ROPINIROLE HCL 1 MG TAB PO SCH ×4 (02:12→22:18)
[2020-09-02] MEDS ORDERED: PNEUMOCOCCAL VACCINE POLYVALENT 23 MCG/0.5 ML VIAL IM SCH (04:26)
[2020-09-02] MEDS: ONDANSETRON HCL INJ 2MG/ML 2ML 2 MG/ML VIAL IV PRN (04:55)
[2020-09-02] MEDS: MORPHINE SULFATE INJ 4 MG/ML INJ 1ML IV PRN ×3 (04:55→18:30)
[2020-09-02 04:56] LABS: BASOPHILS % 0.4 % (0.0-1.0); EOSINOPHILS # (AUTO) 0.1 (0.0-0.4); EOSINOPHILS % 1.2 % (0.0-6.0); HEMATOCRIT 29.5 % (38.2-49.6); HEMOGLOBIN 10.1 g/dL (14.0-18.0); LYMPHOCYTES # (AUTO) 1.8 (1.0-3.2); MEAN CORPUSCULAR HEMOGLOBIN 31.7 pg (28-32); MEAN CORPUSCULAR HGB CONC 34.2 g/dL (31-35); MEAN CORPUSCULAR VOLUME 92.5 fL (81-99); MONOCYTES # (AUTO) 1.1 (0.2-0.8); MONOCYTES % 9.9 % (4.4-11.3); NEUTROPHILS # (AUTO) 8.2 (2.1-6.9); NEUTROPHILS % 72.1 % (38.7-80.0); PLATELET COUNT 310 x10e3/uL (140-360); RED BLOOD COUNT 3.19 x10e6/uL (4.3-5.7); RED CELL DISTRIBUTION WIDTH 12.9 % (11.7-14.4)
[2020-09-02 05:13] LABS: ALANINE AMINOTRANSFERASE 18 IU/L (0-55); ALBUMIN 2.8 g/dL (3.5-5.0); ALBUMIN/GLOBULIN RATIO 0.9 (0.8-2.0); ALKALINE PHOSPHATASE 79 IU/L (40-150); ANION GAP 13.2 mmol/L (8-16); BLOOD UREA NITROGEN 20 mg/dL (7-26); BUN/CREATININE RATIO 27 (6-25); CALCIUM 8.3 mg/dL (8.4-10.2); CARBON DIOXIDE 27 mmol/L (22-29); CHLORIDE 100 mmol/L (98-107); CREATININE, SERUM 0.75 mg/dL (0.72-1.25); EST GLOMERULAR FILTRATION RATE > 60 ML/MIN (60-); GLUCOSE 172 mg/dL (74-118); POTASSIUM 4.2 mmol/L (3.5-5.1); SODIUM 136 mmol/L (136-145)
[2020-09-02] MEDS: INSULIN REGULAR, HUMAN 100 UNIT/1 ML 3ML VIAL SQ SCH ×4 (08:00→21:00)
[2020-09-02] MEDS: VANCOMYCIN 1GM/NS 250 ML 250 ML IV SCH ×2 (08:58→22:18)
[2020-09-02] MEDS: HEPARIN SOD (PORCINE) 5,000 UNIT/ML VIAL SC SCH ×2 (09:00→22:46)
[2020-09-02] MEDS ORDERED: FENTANYL 50 MCG/HR PATCH TOP SCH (15:00)
[2020-09-02] MEDS: GABAPENTIN 300 MG CAP PO SCH ×2 (15:12→22:18)
[2020-09-02] MEDS: FENTANYL 25 MCG/HR PATCH TOP SCH (17:43)
[2020-09-02] MEDS: LISINOPRIL 2.5 MG TAB PO SCH (22:18)
[2020-09-03] VITALS (8 sets, daily range): BP systolic 136–164; BP diastolic 63–73
[2020-09-03] MEDS: MORPHINE SULFATE INJ 4 MG/ML INJ 1ML IV PRN ×3 (02:29→19:12)
[2020-09-03] MEDS: TIZANIDINE HCL 4 MG TAB PO PRN ×3 (03:29→21:30)
[2020-09-03 05:11] LABS: BASOPHILS # (AUTO) 0.1 (0.0-0.1); BASOPHILS % 0.6 % (0.0-1.0); EOSINOPHILS # (AUTO) 0.3 (0.0-0.4); EOSINOPHILS % 2.8 % (0.0-6.0); HEMATOCRIT 29.8 % (38.2-49.6); LYMPHOCYTES # (AUTO) 2.4 (1.0-3.2); LYMPHOCYTES % 22.9 % (18.0-39.1); MEAN CORPUSCULAR HEMOGLOBIN 31.3 pg (28-32); MEAN CORPUSCULAR HGB CONC 33.6 g/dL (31-35); MEAN CORPUSCULAR VOLUME 93.4 fL (81-99); MONOCYTES % 9.9 % (4.4-11.3); NEUTROPHILS # (AUTO) 6.6 (2.1-6.9); NEUTROPHILS % 63.3 % (38.7-80.0); PLATELET COUNT 319 x10e3/uL (140-360); RED BLOOD COUNT 3.19 x10e6/uL (4.3-5.7); RED CELL DISTRIBUTION WIDTH 12.6 % (11.7-14.4)
[2020-09-03 05:39] LABS: BLOOD UREA NITROGEN 10 mg/dL (7-26); BUN/CREATININE RATIO 14 (6-25); CALCIUM 8.4 mg/dL (8.4-10.2); CARBON DIOXIDE 26 mmol/L (22-29); CHLORIDE 103 mmol/L (98-107); CREATININE, SERUM 0.69 mg/dL (0.72-1.25); EST GLOMERULAR FILTRATION RATE > 60 ML/MIN (60-); GLUCOSE 149 mg/dL (74-118); SODIUM 137 mmol/L (136-145)
[2020-09-03] MEDS: PIPER-TAZ 3.375 GM 50 ML IV SCH ×3 (06:10→22:00)
[2020-09-03] MEDS: LEVOTHYROXINE SODIUM 25 MCG TABLET PO SCH (06:10)
[2020-09-03] MEDS: INSULIN REGULAR, HUMAN 100 UNIT/1 ML 3ML VIAL SQ SCH ×4 (07:30→21:04)
[2020-09-03] MEDS ORDERED: ATORVASTATIN 20 MG TAB PO SCH (09:00)
[2020-09-03] MEDS ORDERED: COLLAGENASE 5 GM TUBE TOP SCH (09:00)
[2020-09-03] MEDS ORDERED: LEVOTHYROXINE SODIUM 50 MCG TAB PO SCH (09:00)
[2020-09-03] MEDS: PIOGLITAZONE HCL 15 MG TAB PO SCH (09:32)
[2020-09-03] MEDS: SITAGLIPTIN 100 MG TAB PO SCH (09:32)
[2020-09-03] MEDS: ATORVASTATIN 40 MG TAB PO SCH (09:33)
[2020-09-03] MEDS: GABAPENTIN 300 MG CAP PO SCH ×3 (09:33→21:03)
[2020-09-03] MEDS: HEPARIN SOD (PORCINE) 5,000 UNIT/ML VIAL SC SCH ×2 (09:33→21:04)
[2020-09-03] MEDS: ROPINIROLE HCL 1 MG TAB PO SCH ×3 (09:33→21:03)
[2020-09-03] MEDS: ATENOLOL 50 MG TAB PO SCH (09:33)
[2020-09-03] MEDS: LISINOPRIL 2.5 MG TAB PO SCH (21:03)
[2020-09-04] VITALS (8 sets, daily range): BP systolic 122–169; BP diastolic 50–90
[2020-09-04] MEDS: VANCOMYCIN 1GM/NS 250 ML 250 ML IV SCH ×2 (01:24→14:51)
[2020-09-04] MEDS: LEVOTHYROXINE SODIUM 25 MCG TABLET PO SCH (05:27)
[2020-09-04] MEDS: PIPER-TAZ 3.375 GM 50 ML IV SCH ×3 (05:27→21:54)
[2020-09-04] MEDS: INSULIN REGULAR, HUMAN 100 UNIT/1 ML 3ML VIAL SQ SCH ×4 (07:30→21:15)
[2020-09-04] MEDS: BALSAM PERU/CASTOR OIL 60 GM OINT...G. TP SCH (08:34)
[2020-09-04] MEDS: ATENOLOL 50 MG TAB PO SCH (08:34)
[2020-09-04] MEDS: PIOGLITAZONE HCL 15 MG TAB PO SCH (08:34)
[2020-09-04] MEDS: GABAPENTIN 300 MG CAP PO SCH ×3 (08:34→20:19)
[2020-09-04] MEDS: ATORVASTATIN 40 MG TAB PO SCH (08:34)
[2020-09-04] MEDS: ROPINIROLE HCL 1 MG TAB PO SCH ×3 (08:34→20:20)
[2020-09-04] MEDS: SITAGLIPTIN 100 MG TAB PO SCH (08:34)
[2020-09-04] MEDS: MORPHINE SULFATE INJ 4 MG/ML INJ 1ML IV PRN ×2 (08:35→21:54)
[2020-09-04] MEDS: HEPARIN SOD (PORCINE) 5,000 UNIT/ML VIAL SC SCH ×2 (09:03→21:15)
[2020-09-04] MEDS: TIZANIDINE HCL 4 MG TAB PO PRN (20:20)
[2020-09-04] MEDS: LISINOPRIL 2.5 MG TAB PO SCH (20:20)
[2020-09-04] MEDS: ONDANSETRON HCL INJ 2MG/ML 2ML 2 MG/ML VIAL IV PRN (21:54)
[2020-09-05] VITALS (7 sets, daily range): BP systolic 104–149; BP diastolic 47–82
[2020-09-05] MEDS: VANCOMYCIN 1GM/NS 250 ML 250 ML IV SCH ×2 (02:00→14:37)
[2020-09-05] MEDS: MORPHINE SULFATE INJ 4 MG/ML INJ 1ML IV PRN ×3 (04:40→17:16)
[2020-09-05] MEDS: PIPER-TAZ 3.375 GM 50 ML IV SCH ×3 (05:02→21:14)
[2020-09-05] MEDS: LEVOTHYROXINE SODIUM 25 MCG TABLET PO SCH (05:02)
[2020-09-05] MEDS: TIZANIDINE HCL 4 MG TAB PO PRN ×3 (06:14→22:27)
[2020-09-05] MEDS: ATENOLOL 50 MG TAB PO SCH (09:00)
[2020-09-05] MEDS: GABAPENTIN 300 MG CAP PO SCH ×3 (09:03→21:14)
[2020-09-05] MEDS: PIOGLITAZONE HCL 15 MG TAB PO SCH (09:03)
[2020-09-05] MEDS: SITAGLIPTIN 100 MG TAB PO SCH (09:03)
[2020-09-05] MEDS: ROPINIROLE HCL 1 MG TAB PO SCH ×3 (09:03→21:14)
[2020-09-05] MEDS: ATORVASTATIN 40 MG TAB PO SCH (09:03)
[2020-09-05] MEDS: BALSAM PERU/CASTOR OIL 60 GM OINT...G. TP SCH (09:06)
[2020-09-05] MEDS: HEPARIN SOD (PORCINE) 5,000 UNIT/ML VIAL SC SCH ×2 (09:17→21:25)
[2020-09-05] MEDS: INSULIN REGULAR, HUMAN 100 UNIT/1 ML 3ML VIAL SQ SCH ×4 (09:18→21:35)
[2020-09-05] MEDS: FENTANYL 25 MCG/HR PATCH TOP SCH (17:02)
[2020-09-05] MEDS ORDERED: LISINOPRIL 10 MG TAB PO SCH (21:00)
[2020-09-06] VITALS (8 sets, daily range): BP systolic 110–182; BP diastolic 61–80
[2020-09-06] MEDS: VANCOMYCIN 1GM/NS 250 ML 250 ML IV SCH ×2 (02:44→14:05)
[2020-09-06] MEDS: ONDANSETRON HCL INJ 2MG/ML 2ML 2 MG/ML VIAL IV PRN ×2 (03:55→20:00)
[2020-09-06] MEDS: MORPHINE SULFATE INJ 4 MG/ML INJ 1ML IV PRN ×2 (03:55→20:00)
[2020-09-06] MEDS: PIPER-TAZ 3.375 GM 50 ML IV SCH ×3 (05:16→21:55)
[2020-09-06] MEDS: LEVOTHYROXINE SODIUM 25 MCG TABLET PO SCH (05:16)
[2020-09-06 07:45] LABS: BASOPHILS # (AUTO) 0.1 (0.0-0.1); BASOPHILS % 0.7 % (0.0-1.0); EOSINOPHILS # (AUTO) 0.3 (0.0-0.4); EOSINOPHILS % 3.7 % (0.0-6.0); HEMATOCRIT 31.1 % (38.2-49.6); HEMOGLOBIN 10.1 g/dL (14.0-18.0); LYMPHOCYTES # (AUTO) 1.7 (1.0-3.2); LYMPHOCYTES % 19.8 % (18.0-39.1); MEAN CORPUSCULAR HEMOGLOBIN 30.4 pg (28-32); MEAN CORPUSCULAR HGB CONC 32.5 g/dL (31-35); MEAN CORPUSCULAR VOLUME 93.7 fL (81-99); MONOCYTES # (AUTO) 0.8 (0.2-0.8); MONOCYTES % 8.6 % (4.4-11.3); NEUTROPHILS # (AUTO) 5.9 (2.1-6.9); NEUTROPHILS % 66.7 % (38.7-80.0); PLATELET COUNT 335 x10e3/uL (140-360); RED BLOOD COUNT 3.32 x10e6/uL (4.3-5.7); RED CELL DISTRIBUTION WIDTH 12.8 % (11.7-14.4)
[2020-09-06] MEDS: HEPARIN SOD (PORCINE) 5,000 UNIT/ML VIAL SC SCH ×2 (07:51→20:23)
[2020-09-06] MEDS: INSULIN REGULAR, HUMAN 100 UNIT/1 ML 3ML VIAL SQ SCH ×4 (07:52→20:23)
[2020-09-06] MEDS: ATORVASTATIN 40 MG TAB PO SCH (08:05)
[2020-09-06] MEDS: ROPINIROLE HCL 1 MG TAB PO SCH ×3 (08:05→20:22)
[2020-09-06] MEDS: GABAPENTIN 300 MG CAP PO SCH ×3 (08:05→20:22)
[2020-09-06] MEDS: SITAGLIPTIN 100 MG TAB PO SCH (08:05)
[2020-09-06] MEDS: PIOGLITAZONE HCL 15 MG TAB PO SCH (08:05)
[2020-09-06] MEDS: ATENOLOL 50 MG TAB PO SCH (08:06)
[2020-09-06 08:10] LABS: ANION GAP 12.2 mmol/L (8-16); BLOOD UREA NITROGEN 7 mg/dL (7-26); BUN/CREATININE RATIO 10 (6-25); CALCIUM 8.5 mg/dL (8.4-10.2); CARBON DIOXIDE 26 mmol/L (22-29); CHLORIDE 102 mmol/L (98-107); CREATININE, SERUM 0.67 mg/dL (0.72-1.25); EST GLOMERULAR FILTRATION RATE > 60 ML/MIN (60-); GLUCOSE 248 mg/dL (74-118); POTASSIUM 4.2 mmol/L (3.5-5.1); SODIUM 136 mmol/L (136-145)
[2020-09-06] MEDS: TIZANIDINE HCL 4 MG TAB PO PRN ×2 (09:20→17:52)
[2020-09-06] MEDS: BALSAM PERU/CASTOR OIL 60 GM OINT...G. TP SCH (10:45)
[2020-09-06] MEDS ORDERED: MAGNESIUM HYDROXIDE 30 ML UDC PO NR (15:15)
[2020-09-06] MEDS ORDERED: POLYETHYLENE GLYCOL 3350 17 GM PACK PO PRN (15:30)
[2020-09-06] MEDS: LISINOPRIL 10 MG TAB PO SCH (16:13)
[2020-09-06] MEDS ORDERED: SODIUM CHLORIDE 0.9% 250ML 250 ML ONE (20:15)
[2020-09-07] VITALS (8 sets, daily range): BP systolic 116–171; BP diastolic 59–72
[2020-09-07] MEDS: ONDANSETRON HCL INJ 2MG/ML 2ML 2 MG/ML VIAL IV PRN (02:05)
[2020-09-07] MEDS: MORPHINE SULFATE INJ 4 MG/ML INJ 1ML IV PRN ×3 (02:05→17:28)
[2020-09-07] MEDS: TIZANIDINE HCL 4 MG TAB PO PRN ×2 (02:05→10:47)
[2020-09-07] MEDS: PIPER-TAZ 3.375 GM 50 ML IV SCH ×3 (05:32→21:45)
[2020-09-07] MEDS: LEVOTHYROXINE SODIUM 25 MCG TABLET PO SCH (05:32)
[2020-09-07] MEDS: GABAPENTIN 300 MG CAP PO SCH ×3 (08:37→21:45)
[2020-09-07] MEDS: ATORVASTATIN 40 MG TAB PO SCH (08:37)
[2020-09-07] MEDS: SITAGLIPTIN 100 MG TAB PO SCH (08:37)
[2020-09-07] MEDS: PIOGLITAZONE HCL 15 MG TAB PO SCH (08:37)
[2020-09-07] MEDS: LISINOPRIL 10 MG TAB PO SCH ×2 (08:39→17:24)
[2020-09-07] MEDS: ATENOLOL 50 MG TAB PO SCH (08:39)
[2020-09-07] MEDS: ROPINIROLE HCL 1 MG TAB PO SCH ×3 (08:39→21:45)
[2020-09-07] MEDS: HEPARIN SOD (PORCINE) 5,000 UNIT/ML VIAL SC SCH ×2 (08:54→21:45)
[2020-09-07] MEDS: INSULIN REGULAR, HUMAN 100 UNIT/1 ML 3ML VIAL SQ SCH ×4 (08:55→21:45)
[2020-09-07] MEDS: VANCOMYCIN 1GM/NS 250 ML 250 ML IV SCH (08:56)
[2020-09-07] MEDS: BALSAM PERU/CASTOR OIL 60 GM OINT...G. TP SCH (08:56)
[2020-09-07] MEDS ORDERED: CITRATE OF MAGNESIA 300ML BOTTLE PO ONE (14:30)
[2020-09-08] VITALS: BP 161/80
[2020-09-08] MEDS: ONDANSETRON HCL INJ 2MG/ML 2ML 2 MG/ML VIAL IV PRN (02:15)
[2020-09-08] MEDS: MORPHINE SULFATE INJ 4 MG/ML INJ 1ML IV PRN (02:15)
[2020-09-08 04:00] VITALS: BP 123/57
[2020-09-08] MEDS: TIZANIDINE HCL 4 MG TAB PO PRN ×2 (05:50→14:29)
[2020-09-08] MEDS: PIPER-TAZ 3.375 GM 50 ML IV SCH ×2 (05:58→13:26)
[2020-09-08] MEDS: LEVOTHYROXINE SODIUM 25 MCG TABLET PO SCH (05:58)
[2020-09-08 08:16] VITALS: BP 108/61
[2020-09-08 08:49] VITALS: BP 108/61
[2020-09-08] MEDS: BALSAM PERU/CASTOR OIL 60 GM OINT...G. TP SCH (09:00)
[2020-09-08] MEDS ORDERED: ZINC OXIDE 30 GM TUBE TOP SCH (09:00)
[2020-09-08] MEDS: ATENOLOL 50 MG TAB PO SCH (09:00)
[2020-09-08] MEDS ORDERED: FLUCONAZOLE 100 MG TAB PO SCH (09:00)
[2020-09-08] MEDS: VANCOMYCIN 1GM/NS 250 ML 250 ML IV SCH (09:57)
[2020-09-08] MEDS: PIOGLITAZONE HCL 15 MG TAB PO SCH (09:58)
[2020-09-08] MEDS: ATORVASTATIN 40 MG TAB PO SCH (09:59)
[2020-09-08] MEDS: GABAPENTIN 300 MG CAP PO SCH ×2 (09:59→14:27)
[2020-09-08] MEDS: SITAGLIPTIN 100 MG TAB PO SCH (09:59)
[2020-09-08] MEDS: ROPINIROLE HCL 1 MG TAB PO SCH ×2 (10:03→14:27)
[2020-09-08] MEDS: HEPARIN SOD (PORCINE) 5,000 UNIT/ML VIAL SC SCH (10:10)
[2020-09-08] MEDS: INSULIN REGULAR, HUMAN 100 UNIT/1 ML 3ML VIAL SQ SCH ×2 (10:11→13:13)
[2020-09-08 11:53] VITALS: BP 160/87
[2020-09-08] MEDS ORDERED: ZINC OXIDE56.7 GM TOP (12:22)
[2020-09-08] MEDS ORDERED: DIFLUCAN100 MG PO (12:22)
[2020-09-08] MEDS ORDERED: LISINOPRIL10 MG PO (12:22)
[2020-09-08] MEDS ORDERED: ATENOLOL50 MG PO (12:22)
[2020-09-08] MEDS ORDERED: ONDANSETRON HCL 4 MG ORAL DISINTEGRATING TAB PO PRN (13:15)
[2020-09-08] MEDS: LISINOPRIL 10 MG TAB PO SCH (13:25)
[2020-09-08] MEDS ORDERED: PNEUMOCOCCAL VACCINE POLYVALENT 23 MCG/0.5 ML VIAL IM ONE (16:00)
== END 2020-09-08 15:38 | DRG 592 ==
LOC: ER 18:45 → ERHOLD 20:01 → MED/SURG2 21:08
PROVIDERS: ADMIT Internal Medicine; ATTEND Internal Medicine
DX: L89.314 Pressure ulcer of right buttock, stage 4 (principal); G82.50 Quadriplegia, unspecified; L89.153 Pressure ulcer of sacral region, stage 3; E11.9 Type 2 diabetes mellitus without complications; I10 Essential (primary) hypertension; E03.9 Hypothyroidism, unspecified; G89.4 Chronic pain syndrome; K59.00 Constipation, unspecified; B37.2 Candidiasis of skin and nail; Z20.828 Contact with and (suspected) exposure to other viral communicable diseases; Z79.84 Long term (current) use of oral hypoglycemic drugs
CPT/HCPCS: 36415; 80048; 80053; 80202; 82948; 84134; 85025; 85610; 85651; 85730; 86140; 87040; 90732; 97139; 99251; 99284; J1644; J1817; J2270; J2405; J2543; J3370; J7030; J7050; U0002

== ENCOUNTER 2020-10-31 17:57 | Emergency (ER) | payer OTHER ==
[~2020-10-31] VITALS: Ht 182.9 cm; Wt 84.4 kg
[~2020-10-31 17:57] MED LIST: ATENOLOL50 MG PO; DIFLUCAN100 MG PO; FENTANYL1 EAC1 TOP; GABAPENTIN300 MG PO; GLIPIZIDE5 MG PO; JANUVIA100 MG PO; LEVOTHYROXINE50 MCG PO; LIPITOR20 MG PO; LISINOPRIL10 MG PO; LISINOPRIL2.5 MG PO; LISINOPRIL5 MG PO; METFORMIN HCL1000 MG PO; PIOGLITAZONE HC15 MG PO; ROPINIROLE HCL1 MG PO; TIZANIDINE HCL4 MG PO; ZINC OXIDE56.7 GM TOP
[2020-10-31] MEDS ORDERED: KETOROLAC TROMETHAMINE 30 MG/ML VIAL IM ONE (18:30)
[2020-10-31 18:56] LABS: CLARITY,URINE CLEAR (CLEAR); COLOR,URINE YELLOW (YELLOW); KETONES,URINE TRACE (NEGATIVE); LEUKOCYTE ESTERASE ,URINE NEGATIVE (NEGATIVE); NITRITE,URINE NEGATIVE (NEGATIVE); PROTEIN,URINE DIPSTICK 1+ (NEGATIVE); URINE UROBILINOGEN 1 mg/dL (0.2 - 1)
[2020-10-31 19:05] LABS: BACTERIA,URINE FEW /HPF; EPITHELIAL CELLS,URINE FEW /LPF; RBC,URINE 0-5 /HPF (0-5); WBC,URINE (MAN) 0-5 /HPF (0-5)
[2020-10-31 22:36] VITALS: BP 153/80
== END 2020-10-31 22:38 | disposition home or self-care (01) ==
LOC: ER 18:16
DX: R33.9 Retention of urine, unspecified (principal); M54.40 Lumbago with sciatica, unspecified side; L89.152 Pressure ulcer of sacral region, stage 2; I10 Essential (primary) hypertension; E11.9 Type 2 diabetes mellitus without complications; G82.50 Quadriplegia, unspecified
CPT/HCPCS: 51702; 81001; 87086; 99283; J1885; 51700

== ENCOUNTER 2022-08-01 13:59 | Emergency (ER) | payer MEDICARE, OTHER ==
[2022-08-01] MEDS ORDERED: FLOMAX0.4 MG PO (14:44)
== END 2022-08-01 15:01 | disposition home or self-care (01) ==
LOC: FSED 14:04
DX: R33.9 Retention of urine, unspecified (principal); I10 Essential (primary) hypertension; E11.9 Type 2 diabetes mellitus without complications; G82.50 Quadriplegia, unspecified; G25.81 Restless legs syndrome
CPT/HCPCS: 51700; 81003; 99283

== ENCOUNTER 2022-08-03 11:00 | Emergency (ER) | payer MEDICARE ==
[~2022-08-03] VITALS: Ht 182.9 cm; Wt 127.0 kg
[~2022-08-03 11:00] MED LIST changes: +FLOMAX0.4 MG PO
== END 2022-08-03 11:25 | disposition home or self-care (01) ==
LOC: FSED 11:25
DX: Z46.6 Encounter for fitting and adjustment of urinary device (principal); G82.50 Quadriplegia, unspecified; I10 Essential (primary) hypertension; E11.9 Type 2 diabetes mellitus without complications; G62.9 Polyneuropathy, unspecified; G25.81 Restless legs syndrome; Z79.84 Long term (current) use of oral hypoglycemic drugs; Z79.899 Other long term (current) drug therapy
CPT/HCPCS: 51700; 99282

== ENCOUNTER 2022-09-15 09:06 | Observation (INO) | payer MEDICARE ==
[~2022-09-15] VITALS: Ht 182.9 cm; Wt 83.9 kg
[~2022-09-15 09:06] MED LIST changes: +ACIDOPHILUS1 EAC1 PO; +FLAGYL375 MG PO; +LEVOFLOXACIN250 MG PO
[2022-09-15] MEDS ORDERED: CARVEDILOL6.25 MG (09:44)
[2022-09-15] MEDS ORDERED: FUROSEMIDE40 MG PO (09:45)
[2022-09-15] MEDS ORDERED: FAMOTIDINE20 MG PO (09:45)
[2022-09-15] MEDS ORDERED: SODIUM CHLORIDE 0.9% 1000ML 1,000 ML IV SCH (10:15)
[2022-09-15] MEDS ORDERED: HYDRALAZINE HCL 20 MG/ML VIAL IV PRN (15:00)
[2022-09-15] MEDS ORDERED: DIPHENHYDRAMINE HCL 25 MG CAP PO PRN (15:00)
[2022-09-15] MEDS ORDERED: BENZONATATE 100 MG CAP PO PRN (15:00)
[2022-09-15] MEDS ORDERED: POTASSIUM CHLORIDE 20 MEQ TAB CR PO PRN (15:00)
[2022-09-15] MEDS ORDERED: MELATONIN 5 MG TABLET PO PRN (15:00)
[2022-09-15] MEDS ORDERED: ACETAMINOPHEN 325 MG TAB PO PRN (15:00)
[2022-09-15] MEDS ORDERED: DOCUSATE SODIUM 100 MG CAP PO PRN (15:00)
[2022-09-15] MEDS ORDERED: LIDOCAINE 4% PATCH TP PRN (15:00)
[2022-09-15] MEDS ORDERED: DEXTROSE 50% SYRINGE 50 ML IV PRN ×2 (15:00→22:15)
[2022-09-15] MEDS ORDERED: ALBUTEROL/IPRATROPIUM 3 ML NEB NEB PRN (15:00)
[2022-09-15] MEDS ORDERED: SIMETHICONE 80 MG CHEW PO PRN (15:00)
[2022-09-15] MEDS ORDERED: ONDANSETRON HCL INJ 2MG/ML 2ML 2 MG/ML VIAL IV PRN (15:00)
[2022-09-15 17:47] VITALS: BP 152/69
[2022-09-15 18:00] VITALS: BP 152/69
[2022-09-15] MEDS: SODIUM CHLORIDE 0.9% 1000ML 1,000 ML IV SCH (18:52)
[2022-09-15 19:26] LABS: CREATINE KINASE MB 3.7 ng/mL (0-5.0)
[2022-09-15 20:22] VITALS: BP 152/69
[2022-09-15 21:07] VITALS: BP 169/70
[2022-09-16] VITALS (7 sets, daily range): BP systolic 110–130; BP diastolic 50–66
[2022-09-16] MEDS: SODIUM CHLORIDE 0.9% 1000ML 1,000 ML IV SCH ×2 (03:59→21:59)
[2022-09-16 05:46] LABS: BASOPHILS # (AUTO) 0.1 (0.0-0.1); BASOPHILS % 0.6 % (0.0-1.0); EOSINOPHILS # (AUTO) 0.1 (0.0-0.4); EOSINOPHILS % 1.1 % (0.0-6.0); HEMATOCRIT 29.6 % (38.2-49.6); LYMPHOCYTES # (AUTO) 1.1 (1.0-3.2); LYMPHOCYTES % 9.5 % (18.0-39.1); MEAN CORPUSCULAR HEMOGLOBIN 29.3 pg (28-32); MEAN CORPUSCULAR HGB CONC 33.8 g/dL (31-35); MEAN CORPUSCULAR VOLUME 86.8 fL (81-99); MONOCYTES # (AUTO) 0.8 (0.2-0.8); MONOCYTES % 7.1 % (4.4-11.3); NEUTROPHILS # (AUTO) 9.1 (2.1-6.9); NEUTROPHILS % 80.8 % (38.7-80.0); PLATELET COUNT 456 x10e3/uL (140-360); RED BLOOD COUNT 3.41 x10e6/uL (4.3-5.7); RED CELL DISTRIBUTION WIDTH 14.6 % (11.7-14.4)
[2022-09-16 06:10] LABS: ALBUMIN 2.4 g/dL (3.5-5.0); ALBUMIN/GLOBULIN RATIO 0.6 (0.8-2.0); ANION GAP 14.1 mmol/L (8-16); CALCIUM 8.4 mg/dL (8.4-10.2); CREATININE, SERUM 0.61 mg/dL (0.72-1.25); POTASSIUM 4.1 mmol/L (3.5-5.1)
[2022-09-16 06:25] LABS: CHOL/HDL RATIO 2.4 (3.9-4.7)
[2022-09-16 06:38] LABS: THYROID STIMULATING HORMONE 5.329 uIU/mL (0.350-4.940)
[2022-09-16 07:22] LABS: CREATINE KINASE MB 2.3 ng/mL (0-5.0)
[2022-09-16] MEDS: CARVEDILOL 12.5 MG TAB PO SCH ×2 (09:14→16:50)
[2022-09-16] MEDS: ROPINIROLE HCL 1 MG TAB PO SCH ×3 (09:14→20:47)
[2022-09-16] MEDS: ATORVASTATIN 20 MG TAB PO SCH (09:14)
[2022-09-16] MEDS: FAMOTIDINE 20 MG TAB PO SCH (09:14)
[2022-09-16] MEDS: TAMSULOSIN HCL 0.4 MG CAP PO SCH ×2 (09:14→16:50)
[2022-09-16] MEDS: PANTOPRAZOLE SOD 40 MG TABEC PO SCH (09:15)
[2022-09-16] MEDS: LEVOTHYROXINE SODIUM 50 MCG TAB PO SCH (09:15)
[2022-09-16] MEDS: LISINOPRIL 2.5 MG TAB PO SCH (09:15)
[2022-09-16] MEDS: INSULIN LISPRO 100 UNIT/1 ML 3ML VIAL SQ SCH ×4 (09:25→21:00)
[2022-09-16] MEDS ORDERED: MAGNESIUM SULFATE 2GM/50ML 50 ML IV ONE (15:45)
[2022-09-17 00:23] VITALS: BP 111/59
[2022-09-17 04:55] VITALS: BP 141/71
[2022-09-17 06:22] LABS: BASOPHILS # (AUTO) 0.1 (0.0-0.1); BASOPHILS % 0.7 % (0.0-1.0); EOSINOPHILS # (AUTO) 0.3 (0.0-0.4); EOSINOPHILS % 2.1 % (0.0-6.0); HEMATOCRIT 29.5 % (38.2-49.6); HEMOGLOBIN 9.7 g/dL (14.0-18.0); LYMPHOCYTES # (AUTO) 1.4 (1.0-3.2); LYMPHOCYTES % 11.6 % (18.0-39.1); MEAN CORPUSCULAR HEMOGLOBIN 29.1 pg (28-32); MEAN CORPUSCULAR HGB CONC 32.9 g/dL (31-35); MEAN CORPUSCULAR VOLUME 88.6 fL (81-99); MONOCYTES # (AUTO) 0.8 (0.2-0.8); MONOCYTES % 6.4 % (4.4-11.3); NEUTROPHILS # (AUTO) 9.2 (2.1-6.9); NEUTROPHILS % 78.4 % (38.7-80.0); PLATELET COUNT 431 x10e3/uL (140-360); RED BLOOD COUNT 3.33 x10e6/uL (4.3-5.7)
[2022-09-17 06:48] LABS: CALCIUM 8.4 mg/dL (8.4-10.2); CREATININE, SERUM 0.57 mg/dL (0.72-1.25)
[2022-09-17] MEDS: INSULIN LISPRO 100 UNIT/1 ML 3ML VIAL SQ SCH ×2 (07:51→11:44)
[2022-09-17] MEDS ORDERED: SODIUM CHLORIDE 1 GM TAB PO ONE (08:00)
[2022-09-17 08:11] VITALS: BP 140/75
[2022-09-17] MEDS: LEVOTHYROXINE SODIUM 50 MCG TAB PO SCH (08:40)
[2022-09-17] MEDS: ATORVASTATIN 20 MG TAB PO SCH (08:41)
[2022-09-17] MEDS: LISINOPRIL 2.5 MG TAB PO SCH (08:41)
[2022-09-17] MEDS: ROPINIROLE HCL 1 MG TAB PO SCH ×2 (08:42→15:00)
[2022-09-17] MEDS: PANTOPRAZOLE SOD 40 MG TABEC PO SCH (08:42)
[2022-09-17] MEDS: TAMSULOSIN HCL 0.4 MG CAP PO SCH (08:42)
[2022-09-17] MEDS: FAMOTIDINE 20 MG TAB PO SCH (08:43)
[2022-09-17] MEDS: CARVEDILOL 12.5 MG TAB PO SCH (08:43)
[2022-09-17 08:45] VITALS: BP 140/75
[2022-09-17 11:58] VITALS: BP 120/63
[2022-09-17 14:57] VITALS: BP 129/65
[2022-09-17] MEDS ORDERED: ENOXAPARIN SOD INJ 40 MG/0.4 ML SYR SC SCH (17:00)
== END 2022-09-17 16:55 | disposition home or self-care (01) ==
LOC: FSED 09:16 → ERHOLD 10:33 → MED/SURG2 16:40
PROVIDERS: ADMIT Internal Medicine; ATTEND Internal Medicine
DX: R19.7 Diarrhea, unspecified (principal); E87.1 Hypo-osmolality and hyponatremia; R10.9 Unspecified abdominal pain; R11.2 Nausea with vomiting, unspecified; N17.9 Acute kidney failure, unspecified; E11.22 Type 2 diabetes mellitus with diabetic chronic kidney disease; I12.9 Hypertensive chronic kidney disease with stage 1 through stage 4 chronic kidney disease, or unspecified chronic kidney disease; N18.9 Chronic kidney disease, unspecified; G82.50 Quadriplegia, unspecified; G62.9 Polyneuropathy, unspecified; G25.81 Restless legs syndrome; N20.0 Calculus of kidney; Z20.822 Contact with and (suspected) exposure to COVID-19; Z79.84 Long term (current) use of oral hypoglycemic drugs; Z79.899 Other long term (current) drug therapy; Z90.49 Acquired absence of other specified parts of digestive tract
CPT/HCPCS: 36415 ×3; 74176; 80048 ×2; 80053; 80061; 80076; 81003; 82550 ×2; 82553 ×2; 82948 ×3; 83036; 83735; 84295; 84443; 84484 ×2; 85025 ×3; 93005; 94799 ×3; 99252; 99284; G0378 ×3; J3475; J7030 ×2; S0164 ×2; U0002

== ENCOUNTER 2022-12-12 11:34 | Emergency (ER) | payer MEDICARE ==
[~2022-12-12] VITALS: Ht 182.9 cm; Wt 83.9 kg
[~2022-12-12 11:34] MED LIST changes: +CARVEDILOL6.25 MG; +FAMOTIDINE20 MG PO; +FUROSEMIDE40 MG PO
[2022-12-12] MEDS ORDERED: SODIUM CHLORIDE 0.9% 1000ML 1,000 ML IV ONE (13:15)
[2022-12-12 14:12] LABS: BASOPHILS # (AUTO) 0.1 (0.0-0.1); BASOPHILS % 1.1 % (0.0-1.0); EOSINOPHILS # (AUTO) 0.3 (0.0-0.4); EOSINOPHILS % 3.7 % (0.0-6.0); HEMATOCRIT 31.7 % (38.2-49.6); HEMOGLOBIN 10.2 g/dL (14.0-18.0); LYMPHOCYTES # (AUTO) 1.5 (1.0-3.2); LYMPHOCYTES % 16.3 % (18.0-39.1); MEAN CORPUSCULAR HEMOGLOBIN 26.8 pg (28-32); MEAN CORPUSCULAR HGB CONC 32.2 g/dL (31-35); MEAN CORPUSCULAR VOLUME 83.4 fL (81-99); MONOCYTES # (AUTO) 0.9 (0.2-0.8); MONOCYTES % 10.1 % (4.4-11.3); NEUTROPHILS # (AUTO) 6.3 (2.1-6.9); NEUTROPHILS % 68.5 % (38.7-80.0); PLATELET COUNT 299 x10e3/uL (140-360); RED CELL DISTRIBUTION WIDTH 18.6 % (11.7-14.4)
[2022-12-12 14:30] LABS: ALBUMIN 2.6 g/dL (3.5-5.0); ALBUMIN/GLOBULIN RATIO 0.5 (0.8-2.0); ANION GAP 21.2 mmol/L (8-16); POTASSIUM 4.2 mmol/L (3.5-5.1)
== END 2022-12-12 15:24 | disposition short-term general hospital (02) ==
LOC: ER 12:05
DX: S12.111A Posterior displaced Type II dens fracture, initial encounter for closed fracture (principal); W05.0XXA Fall from non-moving wheelchair, initial encounter; Y92.89 Other specified places as the place of occurrence of the external cause; E11.40 Type 2 diabetes mellitus with diabetic neuropathy, unspecified; I10 Essential (primary) hypertension; E78.5 Hyperlipidemia, unspecified; E03.9 Hypothyroidism, unspecified; G82.50 Quadriplegia, unspecified; M54.9 Dorsalgia, unspecified; G89.29 Other chronic pain; Z20.822 Contact with and (suspected) exposure to COVID-19
CPT/HCPCS: 36415; 70450; 72125; 80053; 85025; 93005; 99284; J7030; U0002

== ENCOUNTER 2024-10-16 11:18 | Inpatient (IN) | payer MEDICARE ==
[~2024-10-16] VITALS: Ht 188 cm; Wt 83.9 kg
[2024-10-16] MEDS ORDERED: SODIUM CHLORIDE FLUSH 10 ML SYR IV PRN (11:45)
[2024-10-16 12:15] LABS: BASOPHILS % 0.6 % (0.0-1.0); EOSINOPHILS # (AUTO) 0.1 (0.0-0.4); EOSINOPHILS % 0.7 % (0.0-6.0); HEMOGLOBIN 10.6 g/dL (14.0-18.0); LYMPHOCYTES # (AUTO) 1.1 (1.0-3.2); LYMPHOCYTES % 14.9 % (18.0-39.1); MEAN CORPUSCULAR HEMOGLOBIN 31.5 pg (28-32); MEAN CORPUSCULAR HGB CONC 32.1 g/dL (31-35); MEAN CORPUSCULAR VOLUME 98.2 fL (81-99); MONOCYTES # (AUTO) 0.5 (0.2-0.8); MONOCYTES % 6.9 % (4.4-11.3); NEUTROPHILS # (AUTO) 5.5 (2.1-6.9); NEUTROPHILS % 76.5 % (38.7-80.0); PLATELET COUNT 203 x10e3/uL (140-360); RED BLOOD COUNT 3.36 x10e6/uL (4.3-5.7); RED CELL DISTRIBUTION WIDTH 16.1 % (11.7-14.4); WHITE BLOOD COUNT 7.13 x10e3/uL (4.8-10.8)
[2024-10-16 12:55] LABS: ALBUMIN/GLOBULIN RATIO 1.1 (0.8-2.0); ANION GAP 17.9 mmol/L (8-16); BILIRUBIN,TOTAL 1.4 mg/dL (0.2-1.2); CALCIUM 9.9 mg/dL (8.4-10.2); CREATININE, SERUM 1.4 mg/dL (0.72-1.25); POTASSIUM 3.9 mmol/L (3.5-5.1); TOTAL PROTEIN 7.8 g/dL (6.5-8.1)
[2024-10-16 13:02] LABS: TROPONIN I 0.007 ng/mL (0-0.300)
[2024-10-16] MEDS ORDERED: IOPAMIDOL 370 MG/ML 100 ML INFUS..BTL INJ ONE (13:07)
[2024-10-16] MEDS: SODIUM CHLORIDE 0.9% 1000ML 1,000 ML IV ONE (13:50)
[2024-10-16] MEDS ORDERED: ONDANSETRON HCL INJ 2MG/ML 2ML 2 MG/ML VIAL IV PRN (16:15)
[2024-10-16 16:26] VITALS: PULSE 74; RESP 16; TEMP 97.9
[2024-10-16] MEDS: SODIUM CHLORIDE 0.9% 1000ML 1,000 ML IV SCH (16:48)
[2024-10-16 18:08] LABS: CLARITY,URINE CLEAR (CLEAR); COLOR,URINE YELLOW (YELLOW); LEUKOCYTE ESTERASE ,URINE NEGATIVE (NEGATIVE); NITRITE,URINE NEGATIVE (NEGATIVE); PH,URINE 6 (5 - 7); PROTEIN,URINE DIPSTICK NEGATIVE (NEGATIVE)
[2024-10-16 18:09] LABS: BILIRUBIN,URINE NEGATIVE (NEGATIVE); GLUCOSE, URINE NEGATIVE (NEGATIVE); KETONES,URINE NEGATIVE (NEGATIVE); URINE UROBILINOGEN 0.2 mg/dL (0.2 - 1)
[2024-10-16 18:15] VITALS: BP 110/54; PULSE 51; RESP 17; TEMP 97.4; O2SAT 94
[2024-10-16 18:34] LABS: EPITHELIAL CELLS,URINE RARE /LPF; WBC,URINE (MAN) 0-5 /HPF (0-5)
[2024-10-16 20:00] VITALS: BP_SYST 153; BP_SYST 166; BP_DIAS 69; BP_DIAS 72; PULSE 62; RESP 18; TEMP 97.3; O2SAT 98
[2024-10-16] MEDS ORDERED: DEXTROSE 50% SYRINGE 50 ML IV PRN (23:15)
[2024-10-17] VITALS (10 sets, daily range): BP systolic 97–153; BP diastolic 49–75; PULSE 47–69; RESP 17–20; TEMP 97–98.5; O2SAT 95–98
[2024-10-17] MEDS: ROPINIROLE HCL 1 MG TAB PO SCH (00:51)
[2024-10-17] MEDS: CARVEDILOL 12.5 MG TAB PO SCH (00:52)
[2024-10-17] MEDS ORDERED: BACLOFEN20 MG PO (01:02)
[2024-10-17 05:38] LABS: BASOPHILS # (AUTO) 0.1 (0.0-0.1); BASOPHILS % 0.9 % (0.0-1.0); EOSINOPHILS # (AUTO) 0.1 (0.0-0.4); EOSINOPHILS % 1.6 % (0.0-6.0); HEMATOCRIT 29.1 % (38.2-49.6); HEMOGLOBIN 9.5 g/dL (14.0-18.0); LYMPHOCYTES # (AUTO) 1.3 (1.0-3.2); LYMPHOCYTES % 22.3 % (18.0-39.1); MEAN CORPUSCULAR HEMOGLOBIN 31.5 pg (28-32); MEAN CORPUSCULAR HGB CONC 32.6 g/dL (31-35); MEAN CORPUSCULAR VOLUME 96.4 fL (81-99); MONOCYTES # (AUTO) 0.5 (0.2-0.8); MONOCYTES % 8.3 % (4.4-11.3); NEUTROPHILS # (AUTO) 3.8 (2.1-6.9); NEUTROPHILS % 66.6 % (38.7-80.0); PLATELET COUNT 178 x10e3/uL (140-360); RED BLOOD COUNT 3.02 x10e6/uL (4.3-5.7); WHITE BLOOD COUNT 5.75 x10e3/uL (4.8-10.8)
[2024-10-17 06:12] LABS: ALBUMIN 3.5 g/dL (3.5-5.0); ALBUMIN/GLOBULIN RATIO 1.1 (0.8-2.0); ANION GAP 13.7 mmol/L (8-16); BILIRUBIN,TOTAL 1.1 mg/dL (0.2-1.2); CALCIUM 9.2 mg/dL (8.4-10.2); CREATININE, SERUM 1.34 mg/dL (0.72-1.25); POTASSIUM 3.7 mmol/L (3.5-5.1); TOTAL PROTEIN 6.6 g/dL (6.5-8.1)
[2024-10-17 06:32] LABS: MAGNESIUM 1.5 MG/DL (1.3-2.1); PHOSPHORUS 3.6 MG/DL (2.3-4.7)
[2024-10-17] MEDS ORDERED: GLIPIZIDE 5 MG TAB PO SCH (07:30)
[2024-10-17] MEDS: INSULIN LISPRO 100 UNIT/1 ML 3ML VIAL SQ SCH (07:30)
[2024-10-17] MEDS: ATORVASTATIN 20 MG TAB PO SCH (09:00)
[2024-10-17] MEDS: LEVOTHYROXINE SODIUM 50 MCG TAB PO SCH (09:30)
[2024-10-17] MEDS: TAMSULOSIN HCL 0.4 MG CAP PO SCH (09:31)
[2024-10-17] MEDS: FAMOTIDINE 20 MG TAB PO SCH (09:31)
[2024-10-17] MEDS: GABAPENTIN 300 MG CAP PO SCH (09:32)
[2024-10-17] MEDS: LACTOBACILLUS ACIDOPHILUS CAPSULE PO SCH (09:32)
[2024-10-17] MEDS: SODIUM CHLORIDE 0.9% 1000ML 1,000 ML ONE (10:57)
[2024-10-17] MEDS: GLIPIZIDE 5 MG TAB PO SCH (17:36)
[2024-10-18] VITALS: BP 96/51; PULSE 60; RESP 20; TEMP 98; O2SAT 93
[2024-10-18 04:00] VITALS: BP 140/74; PULSE 60; RESP 20; TEMP 97.7; O2SAT 99
[2024-10-18 05:48] LABS: BASOPHILS % 0.7 % (0.0-1.0); EOSINOPHILS # (AUTO) 0.1 (0.0-0.4); EOSINOPHILS % 1.5 % (0.0-6.0); HEMOGLOBIN 9.7 g/dL (14.0-18.0); LYMPHOCYTES # (AUTO) 1.5 (1.0-3.2); LYMPHOCYTES % 24.8 % (18.0-39.1); MEAN CORPUSCULAR HEMOGLOBIN 31.6 pg (28-32); MEAN CORPUSCULAR HGB CONC 32.3 g/dL (31-35); MEAN CORPUSCULAR VOLUME 97.7 fL (81-99); MONOCYTES # (AUTO) 0.6 (0.2-0.8); MONOCYTES % 9.1 % (4.4-11.3); NEUTROPHILS # (AUTO) 3.9 (2.1-6.9); NEUTROPHILS % 63.6 % (38.7-80.0); PLATELET COUNT 175 x10e3/uL (140-360); RED BLOOD COUNT 3.07 x10e6/uL (4.3-5.7); RED CELL DISTRIBUTION WIDTH 16.1 % (11.7-14.4); WHITE BLOOD COUNT 6.14 x10e3/uL (4.8-10.8)
[2024-10-18 06:12] LABS: ANION GAP 13.9 mmol/L (8-16); CALCIUM 9.3 mg/dL (8.4-10.2); CREATININE, SERUM 1.44 mg/dL (0.72-1.25); POTASSIUM 3.9 mmol/L (3.5-5.1)
[2024-10-18 06:27] LABS: MAGNESIUM 1.6 MG/DL (1.3-2.1); PHOSPHORUS 4.1 MG/DL (2.3-4.7)
[2024-10-18 07:00] VITALS: BP 108/56; PULSE 59; RESP 18; TEMP 97.6; O2SAT 94
[2024-10-18 07:32] VITALS: PULSE 65; RESP 18; O2SAT 98
[2024-10-18] MEDS: POTASSIUM CHLORIDE 10MEQ EA PO SCH (09:59)
[2024-10-18] MEDS: FUROSEMIDE INJ 10 MG/ML 4 ML VIAL IV SCH (10:01)
[2024-10-18 10:33] VITALS: BP 108/56; PULSE 57; RESP 18; TEMP 97.6; O2SAT 98
== END 2024-10-18 11:57 | disposition home or self-care (01) | DRG 640 ==
LOC: ER 11:24 → ERHOLD 16:25 → MED/SURG2 18:13 → OBSVTOIN 23:16
PROVIDERS: ADMIT Internal Medicine; ATTEND Internal Medicine
DX: E86.0 Dehydration (principal); G82.50 Quadriplegia, unspecified; N17.9 Acute kidney failure, unspecified; E11.22 Type 2 diabetes mellitus with diabetic chronic kidney disease; E11.649 Type 2 diabetes mellitus with hypoglycemia without coma; I12.9 Hypertensive chronic kidney disease with stage 1 through stage 4 chronic kidney disease, or unspecified chronic kidney disease; N18.9 Chronic kidney disease, unspecified; E03.9 Hypothyroidism, unspecified; E78.5 Hyperlipidemia, unspecified; R60.0 Localized edema; N40.0 Benign prostatic hyperplasia without lower urinary tract symptoms; M54.9 Dorsalgia, unspecified; T50.2X5A Adverse effect of carbonic-anhydrase inhibitors, benzothiadiazides and other diuretics, initial encounter; Z90.49 Acquired absence of other specified parts of digestive tract; Z79.84 Long term (current) use of oral hypoglycemic drugs; Z79.890 Hormone replacement therapy; Z99.3 Dependence on wheelchair
CPT/HCPCS: 36415; 71045; 71260; 80048; 80053; 81001; 82948; 83036; 83540; 83735; 83880; 84100; 84466; 84484; 85025; 93005; 93306; 93970; 94760; 94799; 99284; J0696; J1940; J7030; Q9967

== ENCOUNTER 2024-10-30 06:11 | Observation (INO) | payer MEDICARE ==
[~2024-10-30] VITALS: Ht 188 cm; Wt 83.9 kg
[2024-10-30] VITALS (8 sets, daily range): BP systolic 105–142; BP diastolic 64–78; PULSE 56–77; RESP 18; TEMP 97.4–98.1; O2SAT 96–100
[~2024-10-30 06:11] MED LIST changes: +BACLOFEN20 MG PO
[2024-10-30 07:01] LABS: BASOPHILS % 0.5 % (0.0-1.0); EOSINOPHILS # (AUTO) 0.1 (0.0-0.4); EOSINOPHILS % 1.2 % (0.0-6.0); HEMOGLOBIN 10.9 g/dL (14.0-18.0); LYMPHOCYTES # (AUTO) 1.6 (1.0-3.2); LYMPHOCYTES % 21.5 % (18.0-39.1); MEAN CORPUSCULAR HEMOGLOBIN 31.4 pg (28-32); MEAN CORPUSCULAR VOLUME 95.1 fL (81-99); MONOCYTES # (AUTO) 0.6 (0.2-0.8); MONOCYTES % 7.7 % (4.4-11.3); NEUTROPHILS # (AUTO) 5.1 (2.1-6.9); NEUTROPHILS % 68.8 % (38.7-80.0); PLATELET COUNT 209 x10e3/uL (140-360); RED BLOOD COUNT 3.47 x10e6/uL (4.3-5.7); RED CELL DISTRIBUTION WIDTH 15.6 % (11.7-14.4); WHITE BLOOD COUNT 7.44 x10e3/uL (4.8-10.8)
[2024-10-30 07:12] LABS: INR 1.07; PROTHROMBIN TIME 14.5 seconds (11.9-14.5)
[2024-10-30 07:13] LABS: PARTIAL THROMBOPLASTIN TIME 37.2 seconds (23.8-35.5)
[2024-10-30 07:25] LABS: TROPONIN I 0.015 ng/mL (0-0.300)
[2024-10-30 07:31] LABS: ALBUMIN 4.1 g/dL (3.5-5.0); ALBUMIN/GLOBULIN RATIO 1.2 (0.8-2.0); ANION GAP 13.1 mmol/L (8-16); BILIRUBIN,TOTAL 1.6 mg/dL (0.2-1.2); CALCIUM 9.7 mg/dL (8.4-10.2); CREATININE, SERUM 1.21 mg/dL (0.72-1.25); MAGNESIUM 1.5 MG/DL (1.3-2.1); POTASSIUM 4.1 mmol/L (3.5-5.1); TOTAL PROTEIN 7.6 g/dL (6.5-8.1)
[2024-10-30] MEDS ORDERED: IOPAMIDOL 370 MG/ML 100 ML INFUS..BTL INJ ONE (07:50)
[2024-10-30 08:10] LABS: BILIRUBIN,URINE NEGATIVE (NEGATIVE); CLARITY,URINE CLEAR (CLEAR); COLOR,URINE YELLOW (YELLOW); GLUCOSE, URINE NEGATIVE (NEGATIVE); KETONES,URINE NEGATIVE (NEGATIVE); LEUKOCYTE ESTERASE ,URINE NEGATIVE (NEGATIVE); NITRITE,URINE NEGATIVE (NEGATIVE); PH,URINE 5.5 (5 - 7); PROTEIN,URINE DIPSTICK NEGATIVE (NEGATIVE); URINE UROBILINOGEN 0.2 mg/dL (0.2 - 1)
[2024-10-30 09:06] LABS: BACTERIA,URINE FEW /HPF; EPITHELIAL CELLS,URINE FEW /LPF; RBC,URINE 0-5 /HPF (0-5); WBC,URINE (MAN) 0-5 /HPF (0-5)
[2024-10-30] MEDS: SODIUM CHLORIDE 0.9% 1000ML 1,000 ML IV ONE (09:39)
[2024-10-30] MEDS: ONDANSETRON HCL INJ 2MG/ML 2ML 2 MG/ML VIAL IV PRN (21:47)
[2024-10-30] MEDS: Morphine 2mg Syringe 2 MG/ML SYR IV PRN (21:47)
[2024-10-31 03:45] VITALS: BP 117/56; PULSE 71; RESP 18; TEMP 97.7; O2SAT 96
[2024-10-31 06:07] LABS: BASOPHILS % 0.5 % (0.0-1.0); EOSINOPHILS # (AUTO) 0.1 (0.0-0.4); EOSINOPHILS % 0.9 % (0.0-6.0); HEMATOCRIT 31.6 % (38.2-49.6); HEMOGLOBIN 10.2 g/dL (14.0-18.0); LYMPHOCYTES # (AUTO) 1.5 (1.0-3.2); LYMPHOCYTES % 22.9 % (18.0-39.1); MEAN CORPUSCULAR HEMOGLOBIN 31.3 pg (28-32); MEAN CORPUSCULAR HGB CONC 32.3 g/dL (31-35); MEAN CORPUSCULAR VOLUME 96.9 fL (81-99); MONOCYTES # (AUTO) 0.6 (0.2-0.8); MONOCYTES % 8.9 % (4.4-11.3); NEUTROPHILS # (AUTO) 4.3 (2.1-6.9); NEUTROPHILS % 66.5 % (38.7-80.0); PLATELET COUNT 202 x10e3/uL (140-360); RED BLOOD COUNT 3.26 x10e6/uL (4.3-5.7); RED CELL DISTRIBUTION WIDTH 15.9 % (11.7-14.4); WHITE BLOOD COUNT 6.52 x10e3/uL (4.8-10.8)
[2024-10-31 06:52] LABS: ALBUMIN 3.6 g/dL (3.5-5.0); ALBUMIN/GLOBULIN RATIO 1.2 (0.8-2.0); ANION GAP 14.2 mmol/L (8-16); CALCIUM 9.3 mg/dL (8.4-10.2); CREATININE, SERUM 1.46 mg/dL (0.72-1.25); POTASSIUM 4.2 mmol/L (3.5-5.1); TOTAL PROTEIN 6.7 g/dL (6.5-8.1)
[2024-10-31 08:00] VITALS: BP 122/62; PULSE 66; RESP 21; TEMP 98.2; O2SAT 96
[2024-10-31 09:14] VITALS: BP 122/62; PULSE 66; RESP 21; TEMP 98.2; O2SAT 96
== END 2024-10-31 11:40 | disposition home or self-care (01) ==
LOC: ER 06:16 → ERHOLD 09:11 → MED/SURG2 16:45
PROVIDERS: ADMIT Internal Medicine; ATTEND Internal Medicine
DX: R10.10 Upper abdominal pain, unspecified (principal); E86.0 Dehydration; R59.1 Generalized enlarged lymph nodes; B17.9 Acute viral hepatitis, unspecified; G82.50 Quadriplegia, unspecified; F45.8 Other somatoform disorders; N13.2 Hydronephrosis with renal and ureteral calculous obstruction
CPT/HCPCS: 36415 ×2; 71045; 74177; 80053 ×2; 81001; 82550; 82948 ×2; 83690 ×2; 83735; 83880; 84484; 85025 ×2; 85610; 85730; 93005; 99252; 99284; G0378 ×2; J2270; J2405; J2470; J7030; Q9967

== ENCOUNTER 2024-11-16 15:17 | Emergency (ER) | payer MEDICARE ==
[~2024-11-16] VITALS: Ht 188 cm; Wt 83.9 kg
[2024-11-16 16:07] LABS: BASOPHILS % 0.2 % (0.0-1.0); EOSINOPHILS # (AUTO) 0.1 (0.0-0.4); EOSINOPHILS % 0.6 % (0.0-6.0); HEMATOCRIT 33.8 % (38.2-49.6); HEMOGLOBIN 11.5 g/dL (14.0-18.0); LYMPHOCYTES % 12.3 % (18.0-39.1); MEAN CORPUSCULAR HEMOGLOBIN 31.6 pg (28-32); MEAN CORPUSCULAR VOLUME 92.9 fL (81-99); MONOCYTES # (AUTO) 0.4 (0.2-0.8); MONOCYTES % 5.3 % (4.4-11.3); NEUTROPHILS # (AUTO) 6.7 (2.1-6.9); NEUTROPHILS % 81.4 % (38.7-80.0); PLATELET COUNT 240 x10e3/uL (140-360); RED BLOOD COUNT 3.64 x10e6/uL (4.3-5.7); RED CELL DISTRIBUTION WIDTH 14.6 % (11.7-14.4); WHITE BLOOD COUNT 8.18 x10e3/uL (4.8-10.8)
[2024-11-16 16:15] LABS: INR 0.94; PROTHROMBIN TIME 13.1 seconds (11.9-14.5)
[2024-11-16 16:16] LABS: PARTIAL THROMBOPLASTIN TIME 39.4 seconds (23.8-35.5)
[2024-11-16 16:24] LABS: ANION GAP 17.7 mmol/L (8-16); BILIRUBIN,TOTAL 1.9 mg/dL (0.2-1.2); CALCIUM 9.7 mg/dL (8.4-10.2); CREATININE, SERUM 1.72 mg/dL (0.72-1.25); POTASSIUM 4.7 mmol/L (3.5-5.1); TOTAL PROTEIN 8.2 g/dL (6.5-8.1)
[2024-11-16 16:30] LABS: TROPONIN I 0.014 ng/mL (0-0.300)
[2024-11-16] MEDS: SODIUM CHLORIDE 0.9% 500ML 500 ML IV ONE (18:11)
[2024-11-16] MEDS: LORAZEPAM 1 MG TAB PO ONE (19:08)
[2024-11-16 19:15] VITALS: PULSE 58; RESP 16; TEMP 97.9; O2SAT 96
== END 2024-11-16 19:25 | disposition home or self-care (01) ==
LOC: ER 15:56
DX: R07.89 Other chest pain (principal); N28.9 Disorder of kidney and ureter, unspecified; I10 Essential (primary) hypertension; E11.65 Type 2 diabetes mellitus with hyperglycemia; E78.5 Hyperlipidemia, unspecified; E03.9 Hypothyroidism, unspecified; M54.9 Dorsalgia, unspecified; G89.29 Other chronic pain; R94.31 Abnormal electrocardiogram [ECG] [EKG]; G82.20 Paraplegia, unspecified; Z86.73 Personal history of transient ischemic attack (TIA), and cerebral infarction without residual deficits
CPT/HCPCS: 36415; 71045; 80053; 82550; 83735; 83880; 84484; 85025; 85610; 85730; 93005; 99284; J7040

== ENCOUNTER 2024-11-26 17:03 | Inpatient (IN) | payer MEDICARE ==
[~2024-11-26] VITALS: Ht 182.9 cm; Wt 108.2 kg
[2024-11-26 17:13] VITALS: TEMP 97.6
[2024-11-26 18:56] LABS: BASOPHILS % 0.2 % (0.0-1.0); EOSINOPHILS % 0.3 % (0.0-6.0); HEMATOCRIT 29.8 % (38.2-49.6); HEMOGLOBIN 9.8 g/dL (14.0-18.0); LYMPHOCYTES # (AUTO) 0.6 (1.0-3.2); LYMPHOCYTES % 9.4 % (18.0-39.1); MEAN CORPUSCULAR HEMOGLOBIN 30.8 pg (28-32); MEAN CORPUSCULAR HGB CONC 32.9 g/dL (31-35); MEAN CORPUSCULAR VOLUME 93.7 fL (81-99); MONOCYTES # (AUTO) 0.4 (0.2-0.8); MONOCYTES % 5.8 % (4.4-11.3); NEUTROPHILS # (AUTO) 5.4 (2.1-6.9); PLATELET COUNT 160 x10e3/uL (140-360); RED BLOOD COUNT 3.18 x10e6/uL (4.3-5.7); WHITE BLOOD COUNT 6.37 x10e3/uL (4.8-10.8)
[2024-11-26 19:12] LABS: INR 0.91; PROTHROMBIN TIME 12.8 seconds (11.9-14.5)
[2024-11-26 19:13] LABS: PARTIAL THROMBOPLASTIN TIME 41.2 seconds (23.8-35.5)
[2024-11-26 19:22] LABS: ALBUMIN 3.1 g/dL (3.5-5.0); ALBUMIN/GLOBULIN RATIO 0.9 (0.8-2.0); ANION GAP 15.3 mmol/L (8-16); BILIRUBIN,TOTAL 0.8 mg/dL (0.2-1.2); CALCIUM 9.2 mg/dL (8.4-10.2); CREATININE, SERUM 1.06 mg/dL (0.72-1.25); TOTAL PROTEIN 6.4 g/dL (6.5-8.1)
[2024-11-26 19:24] LABS: LIPASE 75 U/L (8-78); POTASSIUM 5.3 mmol/L (3.5-5.1)
[2024-11-26 19:25] LABS: ACETAMINOPHEN < 3.0 ug/mL (10-30); ETHANOL < 10.0 mg/dL (0.0-10.0); SALICYLATE < 5.0 mg/dL (0-30)
[2024-11-26] MEDS ORDERED: IOPAMIDOL 370 MG/ML 100 ML INFUS..BTL INJ ONE (19:27)
[2024-11-26 19:42] LABS: TROPONIN I 0.011 ng/mL (0-0.300)
[2024-11-26 20:51] LABS: CLARITY,URINE CLEAR (CLEAR); COLOR,URINE YELLOW (YELLOW); GLUCOSE, URINE 500 (NEGATIVE); KETONES,URINE NEGATIVE (NEGATIVE); LEUKOCYTE ESTERASE ,URINE NEGATIVE (NEGATIVE); NITRITE,URINE NEGATIVE (NEGATIVE); OPIATES SCREEN,URINE NEGATIVE (NEGATIVE); PH,URINE 6 (5 - 7); PROTEIN,URINE DIPSTICK NEGATIVE (NEGATIVE)
[2024-11-26 20:52] LABS: AMPHETAMINES SCREEN,URINE NEGATIVE (NEGATIVE); BENZODIAZEPINES SCREEN,URINE NEGATIVE (NEGATIVE); BILIRUBIN,URINE NEGATIVE (NEGATIVE); CANNABINOIDS SCREEN,URINE POSITIVE (NEGATIVE); COCAINE SCREEN,URINE NEGATIVE (NEGATIVE); METHADONE SCREEN, URINE NEGATIVE (NEGATIVE); PHENCYCLIDINE SCREEN,URINE NEGATIVE (NEGATIVE); URINE UROBILINOGEN 0.2 mg/dL (0.2 - 1)
[2024-11-26 20:55] LABS: BACTERIA,URINE RARE /HPF; EPITHELIAL CELLS,URINE RARE /LPF; RBC,URINE 0-5 /HPF (0-5); WBC,URINE (MAN) 0-5 /HPF (0-5)
[2024-11-26 21:24] VITALS: PULSE 41; RESP 16
[2024-11-26] MEDS: SODIUM BICARBONATE 8.4% INJ 50 ML SYR IV STA (22:01)
[2024-11-26] MEDS: SODIUM CHLORIDE 0.9% 1000ML 1,000 ML IV ONE (22:01)
[2024-11-26] MEDS: CALCIUM GLUC 1 G/50 ML NACL 50 ML IV SCH (22:02)
[2024-11-26] MEDS: DEXTROSE 50% SYRINGE 50 ML IV STA (22:05)
[2024-11-26] MEDS: INSULIN REGULAR, HUMAN 100 UNIT/1 ML IV ONE (22:07)
[2024-11-27] VITALS (26 sets, daily range): BP systolic 4–172; BP diastolic 47–110; PULSE 39–106; RESP 12–29; TEMP 91.4–97.9; O2SAT 97–100
[2024-11-27] MEDS: SODIUM CHLORIDE 0.9% 1000ML 1,000 ML IV SCH (00:17)
[2024-11-27] MEDS ORDERED: LIDOCAINE 4% PATCH TP PRN (02:00)
[2024-11-27] MEDS ORDERED: ACETAMINOPHEN 325 MG TAB PO PRN (02:00)
[2024-11-27] MEDS ORDERED: ATROPINE SULFATE 1 MG/ML VIAL IV PRN (02:00)
[2024-11-27] MEDS ORDERED: SIMETHICONE 80 MG CHEW PO PRN (02:00)
[2024-11-27] MEDS ORDERED: POTASSIUM CHLORIDE 20 MEQ TAB CR PO PRN (02:00)
[2024-11-27] MEDS ORDERED: ALBUTEROL/IPRATROPIUM 3 ML NEB NEB PRN (02:00)
[2024-11-27] MEDS ORDERED: DOCUSATE SODIUM 100 MG CAP PO PRN (02:00)
[2024-11-27] MEDS ORDERED: DEXTROSE 50% SYRINGE 50 ML IV PRN ×2 (02:00→02:15)
[2024-11-27] MEDS ORDERED: HYDRALAZINE HCL 20 MG/ML VIAL IV PRN (02:00)
[2024-11-27 03:34] LABS: ABG HCO3 27 mmol/L (22-26); ABG PCO2 53 mmHg (35-45); ABG PH 7.31 (7.35-7.45); ABG PO2 168 mmHg (80-105)
[2024-11-27 03:35] LABS: ABG TCO2 28
[2024-11-27 06:42] LABS: BASOPHILS % 0.3 % (0.0-1.0); EOSINOPHILS % 0.5 % (0.0-6.0); HEMATOCRIT 28.9 % (38.2-49.6); HEMOGLOBIN 9.8 g/dL (14.0-18.0); LYMPHOCYTES # (AUTO) 0.7 (1.0-3.2); LYMPHOCYTES % 10.7 % (18.0-39.1); MEAN CORPUSCULAR HEMOGLOBIN 31.6 pg (28-32); MEAN CORPUSCULAR HGB CONC 33.9 g/dL (31-35); MEAN CORPUSCULAR VOLUME 93.2 fL (81-99); MONOCYTES # (AUTO) 0.5 (0.2-0.8); NEUTROPHILS # (AUTO) 5.3 (2.1-6.9); NEUTROPHILS % 80.2 % (38.7-80.0); PLATELET COUNT 161 x10e3/uL (140-360); RED CELL DISTRIBUTION WIDTH 14.1 % (11.7-14.4); WHITE BLOOD COUNT 6.62 x10e3/uL (4.8-10.8)
[2024-11-27 07:08] LABS: ALBUMIN 2.9 g/dL (3.5-5.0); ANION GAP 11.8 mmol/L (8-16); BILIRUBIN,TOTAL 0.8 mg/dL (0.2-1.2); CALCIUM 8.9 mg/dL (8.4-10.2); CREATININE, SERUM 0.82 mg/dL (0.72-1.25); POTASSIUM 4.8 mmol/L (3.5-5.1); TOTAL PROTEIN 5.9 g/dL (6.5-8.1)
[2024-11-27] MEDS: INSULIN LISPRO 100 UNIT/1 ML 3ML VIAL SQ SCH (07:30)
[2024-11-27 07:37] LABS: CHOL/HDL RATIO 1.7 (3.9-4.7); MAGNESIUM 1.3 MG/DL (1.3-2.1); PHOSPHORUS 3.3 MG/DL (2.3-4.7)
[2024-11-27 07:57] LABS: THYROID STIMULATING HORMONE 4.151 uIU/mL (0.350-4.940)
[2024-11-27] MEDS: ATORVASTATIN 40 MG TAB PO SCH (08:26)
[2024-11-27] MEDS: PANTOPRAZOLE SOD 40 MG TABEC PO SCH (08:26)
[2024-11-27] MEDS: TAMSULOSIN HCL 0.4 MG CAP PO SCH (08:26)
[2024-11-27] MEDS: DIPHENHYDRAMINE HCL 25 MG CAP PO PRN (10:47)
[2024-11-27] MEDS ORDERED: IOPAMIDOL 370 MG/ML 100 ML INFUS..BTL INJ ONE (21:33)
[2024-11-28] VITALS (19 sets, daily range): BP systolic 142–168; BP diastolic 60–94; PULSE 69–90; RESP 12–22; TEMP 97.4–98.3; O2SAT 97–100
[2024-11-28 06:41] LABS: BASOPHILS % 0.4 % (0.0-1.0); EOSINOPHILS % 0.1 % (0.0-6.0); HEMATOCRIT 31.3 % (38.2-49.6); HEMOGLOBIN 10.7 g/dL (14.0-18.0); LYMPHOCYTES # (AUTO) 1.1 (1.0-3.2); LYMPHOCYTES % 14.9 % (18.0-39.1); MEAN CORPUSCULAR HEMOGLOBIN 31.6 pg (28-32); MEAN CORPUSCULAR HGB CONC 34.2 g/dL (31-35); MEAN CORPUSCULAR VOLUME 92.3 fL (81-99); MONOCYTES # (AUTO) 0.7 (0.2-0.8); MONOCYTES % 8.7 % (4.4-11.3); NEUTROPHILS # (AUTO) 5.6 (2.1-6.9); NEUTROPHILS % 75.5 % (38.7-80.0); PLATELET COUNT 202 x10e3/uL (140-360); RED BLOOD COUNT 3.39 x10e6/uL (4.3-5.7); RED CELL DISTRIBUTION WIDTH 14.6 % (11.7-14.4); WHITE BLOOD COUNT 7.44 x10e3/uL (4.8-10.8)
[2024-11-28 07:00] LABS: ANION GAP 14.8 mmol/L (8-16); CALCIUM 8.9 mg/dL (8.4-10.2); CREATININE, SERUM 1.25 mg/dL (0.72-1.25); POTASSIUM 4.8 mmol/L (3.5-5.1)
[2024-11-28] MEDS: LACTATED RINGER'S 1,000 ML INJ SCH (08:00)
[2024-11-28 11:00] LABS: ABG HCO3 22 mmol/L (22-26); ABG PCO2 34 mmHg (35-45); ABG PH 7.42 (7.35-7.45); ABG PO2 112 mmHg (80-105); ABG TCO2 23
[2024-11-28] MEDS: ENOXAPARIN 30 MG/0.3 ML SYR SC SCH (17:27)
[2024-11-29] VITALS (22 sets, daily range): BP systolic 103–160; BP diastolic 56–92; PULSE 58–91; RESP 15–25; TEMP 97.6–100; O2SAT 89–100
[2024-11-29 06:45] LABS: BASOPHILS % 0.5 % (0.0-1.0); EOSINOPHILS % 0.1 % (0.0-6.0); HEMATOCRIT 30.6 % (38.2-49.6); HEMOGLOBIN 10.2 g/dL (14.0-18.0); LYMPHOCYTES # (AUTO) 1.2 (1.0-3.2); LYMPHOCYTES % 14.6 % (18.0-39.1); MEAN CORPUSCULAR HEMOGLOBIN 31.8 pg (28-32); MEAN CORPUSCULAR HGB CONC 33.3 g/dL (31-35); MEAN CORPUSCULAR VOLUME 95.3 fL (81-99); MONOCYTES # (AUTO) 0.7 (0.2-0.8); MONOCYTES % 8.5 % (4.4-11.3); NEUTROPHILS % 75.9 % (38.7-80.0); PLATELET COUNT 160 x10e3/uL (140-360); RED BLOOD COUNT 3.21 x10e6/uL (4.3-5.7); RED CELL DISTRIBUTION WIDTH 15.1 % (11.7-14.4); WHITE BLOOD COUNT 7.89 x10e3/uL (4.8-10.8)
[2024-11-29 07:13] LABS: ALBUMIN 2.9 g/dL (3.5-5.0); ALBUMIN/GLOBULIN RATIO 0.9 (0.8-2.0); ANION GAP 13.7 mmol/L (8-16); BILIRUBIN,TOTAL 1.4 mg/dL (0.2-1.2); CALCIUM 8.9 mg/dL (8.4-10.2); CREATININE, SERUM 1.41 mg/dL (0.72-1.25); POTASSIUM 4.7 mmol/L (3.5-5.1); TOTAL PROTEIN 6.1 g/dL (6.5-8.1)
[2024-11-29] MEDS: FLUTICASONE PROPIONATE NASAL SPRAY NS SCH (18:15)
[2024-11-29] MEDS: ROPINIROLE HCL 1 MG TAB PO SCH (21:39)
[2024-11-30] VITALS (14 sets, daily range): BP systolic 90–146; BP diastolic 53–105; PULSE 67–102; RESP 15–25; TEMP 98.4–99; O2SAT 95–100
[2024-11-30] MEDS: MELATONIN 5 MG TABLET PO PRN (00:14)
[2024-11-30 06:29] LABS: BASOPHILS # (AUTO) 0.1 (0.0-0.1); BASOPHILS % 0.4 % (0.0-1.0); HEMATOCRIT 28.8 % (38.2-49.6); HEMOGLOBIN 9.6 g/dL (14.0-18.0); LYMPHOCYTES # (AUTO) 1.1 (1.0-3.2); LYMPHOCYTES % 4.5 % (18.0-39.1); MEAN CORPUSCULAR HEMOGLOBIN 31.9 pg (28-32); MEAN CORPUSCULAR HGB CONC 33.3 g/dL (31-35); MEAN CORPUSCULAR VOLUME 95.7 fL (81-99); MONOCYTES # (AUTO) 1.2 (0.2-0.8); MONOCYTES % 5.2 % (4.4-11.3); NEUTROPHILS # (AUTO) 21.4 (2.1-6.9); NEUTROPHILS % 89.3 % (38.7-80.0); PLATELET COUNT 140 x10e3/uL (140-360); RED BLOOD COUNT 3.01 x10e6/uL (4.3-5.7); RED CELL DISTRIBUTION WIDTH 15.2 % (11.7-14.4); WHITE BLOOD COUNT 23.92 x10e3/uL (4.8-10.8)
[2024-11-30 06:45] LABS: ANION GAP 13.3 mmol/L (8-16); CALCIUM 8.5 mg/dL (8.4-10.2); CREATININE, SERUM 1.68 mg/dL (0.72-1.25); POTASSIUM 4.3 mmol/L (3.5-5.1)
[2024-11-30 12:01] LABS: BASOPHILS # (AUTO) 0.1 (0.0-0.1); BASOPHILS % 0.2 % (0.0-1.0); HEMATOCRIT 27.7 % (38.2-49.6); HEMOGLOBIN 9.2 g/dL (14.0-18.0); LYMPHOCYTES # (AUTO) 1.2 (1.0-3.2); LYMPHOCYTES % 5.4 % (18.0-39.1); MEAN CORPUSCULAR HEMOGLOBIN 31.6 pg (28-32); MEAN CORPUSCULAR HGB CONC 33.2 g/dL (31-35); MEAN CORPUSCULAR VOLUME 95.2 fL (81-99); MONOCYTES # (AUTO) 1.1 (0.2-0.8); MONOCYTES % 4.7 % (4.4-11.3); NEUTROPHILS # (AUTO) 20.3 (2.1-6.9); NEUTROPHILS % 89.1 % (38.7-80.0); PLATELET COUNT 133 x10e3/uL (140-360); RED BLOOD COUNT 2.91 x10e6/uL (4.3-5.7); RED CELL DISTRIBUTION WIDTH 15.6 % (11.7-14.4)
[2024-11-30 12:06] LABS: BAND NEUTROPHILS % (MANUAL) 3 %; LYMPHOCYTES % (MANUAL) 6 % (19-48); MONOCYTES % (MANUAL) 6 % (3.4-9.0); NEUTROPHILS % (MANUAL) 85 % (40-74); PLATELET ESTIMATE ADEQUATE; PLATELET MORPHOLOGY COMMENT NORMAL
[2024-11-30 12:35] LABS: BILIRUBIN,URINE NEGATIVE (NEGATIVE); CLARITY,URINE CLEAR (CLEAR); COLOR,URINE YELLOW (YELLOW); GLUCOSE, URINE NEGATIVE (NEGATIVE); KETONES,URINE NEGATIVE (NEGATIVE); LEUKOCYTE ESTERASE ,URINE NEGATIVE (NEGATIVE); NITRITE,URINE NEGATIVE (NEGATIVE); PH,URINE 7 (5 - 7); PROTEIN,URINE DIPSTICK TRACE (NEGATIVE); URINE UROBILINOGEN 1 mg/dL (0.2 - 1)
[2024-11-30 12:36] LABS: BACTERIA,URINE FEW /HPF; EPITHELIAL CELLS,URINE FEW /LPF; RBC,URINE 0-5 /HPF (0-5)
[2024-11-30 12:56] LABS: LYMPHOCYTES % (MANUAL) 9 % (19-48); MONOCYTES % (MANUAL) 2 % (3.4-9.0); NEUTROPHILS % (MANUAL) 87 % (40-74); PLATELET ESTIMATE ADEQUATE; PLATELET MORPHOLOGY COMMENT NORMAL; REACTIVE LYMPHOCYTES 2
[2024-12-01] VITALS (23 sets, daily range): BP systolic 88–150; BP diastolic 47–96; PULSE 67–103; RESP 16–28; TEMP 98–99.3; O2SAT 92–100
[2024-12-01 07:17] LABS: BASOPHILS % 0.3 % (0.0-1.0); EOSINOPHILS % 0.3 % (0.0-6.0); HEMATOCRIT 28.4 % (38.2-49.6); HEMOGLOBIN 9.6 g/dL (14.0-18.0); LYMPHOCYTES # (AUTO) 0.8 (1.0-3.2); LYMPHOCYTES % 5.7 % (18.0-39.1); MEAN CORPUSCULAR HEMOGLOBIN 32.4 pg (28-32); MEAN CORPUSCULAR HGB CONC 33.8 g/dL (31-35); MEAN CORPUSCULAR VOLUME 95.9 fL (81-99); MONOCYTES # (AUTO) 0.7 (0.2-0.8); MONOCYTES % 4.7 % (4.4-11.3); NEUTROPHILS # (AUTO) 12.7 (2.1-6.9); NEUTROPHILS % 88.7 % (38.7-80.0); PLATELET COUNT 128 x10e3/uL (140-360); RED BLOOD COUNT 2.96 x10e6/uL (4.3-5.7); RED CELL DISTRIBUTION WIDTH 15.2 % (11.7-14.4); WHITE BLOOD COUNT 14.33 x10e3/uL (4.8-10.8)
[2024-12-01 07:43] LABS: ANION GAP 14.1 mmol/L (8-16); CALCIUM 9.2 mg/dL (8.4-10.2); CREATININE, SERUM 1.43 mg/dL (0.72-1.25); POTASSIUM 4.1 mmol/L (3.5-5.1)
[2024-12-01 10:49] LABS: PLATELET ESTIMATE SLIGHTLY DECREASED; PLATELET MORPHOLOGY COMMENT NORMAL
[2024-12-01] MEDS: DEXTROSE 5%/0.9% SOD CHL 1,000 ML IV SCH (18:15)
[2024-12-01] MEDS: LACTULOSE SYRUP 20 GM/30 ML UDC PO SCH (18:16)
[2024-12-01] MEDS: TRAZODONE HCL 50 MG TAB PO SCH (21:08)
[2024-12-02] VITALS (23 sets, daily range): BP systolic 95–155; BP diastolic 45–126; PULSE 57–97; RESP 12–26; TEMP 97.9–98.6; O2SAT 87–100
[2024-12-02 06:37] LABS: BASOPHILS % 0.2 % (0.0-1.0); EOSINOPHILS # (AUTO) 0.1 (0.0-0.4); HEMATOCRIT 27.9 % (38.2-49.6); HEMOGLOBIN 9.1 g/dL (14.0-18.0); LYMPHOCYTES # (AUTO) 0.8 (1.0-3.2); LYMPHOCYTES % 9.4 % (18.0-39.1); MEAN CORPUSCULAR HEMOGLOBIN 31.4 pg (28-32); MEAN CORPUSCULAR HGB CONC 32.6 g/dL (31-35); MEAN CORPUSCULAR VOLUME 96.2 fL (81-99); MONOCYTES # (AUTO) 0.8 (0.2-0.8); MONOCYTES % 9.4 % (4.4-11.3); NEUTROPHILS # (AUTO) 6.5 (2.1-6.9); NEUTROPHILS % 79.8 % (38.7-80.0); PLATELET COUNT 138 x10e3/uL (140-360); RED CELL DISTRIBUTION WIDTH 15.3 % (11.7-14.4); WHITE BLOOD COUNT 8.16 x10e3/uL (4.8-10.8)
[2024-12-02 07:06] LABS: ALBUMIN 2.6 g/dL (3.5-5.0); ALBUMIN/GLOBULIN RATIO 0.7 (0.8-2.0); ANION GAP 13.9 mmol/L (8-16); BILIRUBIN,TOTAL 2.5 mg/dL (0.2-1.2); CALCIUM 8.7 mg/dL (8.4-10.2); CREATININE, SERUM 1.3 mg/dL (0.72-1.25); POTASSIUM 3.9 mmol/L (3.5-5.1); TOTAL PROTEIN 6.1 g/dL (6.5-8.1)
[2024-12-02] MEDS: BACLOFEN 10 MG TAB PO SCH (11:56)
[2024-12-02] MEDS: ROPINIROLE HCL 1 MG TAB PO SCH (17:03)
[2024-12-03] VITALS (25 sets, daily range): BP systolic 103–165; BP diastolic 56–112; PULSE 60–107; RESP 15–28; TEMP 98.2–100.2; O2SAT 91–100
[2024-12-03] MEDS: TRAZODONE HCL 50 MG TAB PO PRN (00:24)
[2024-12-03 05:38] LABS: ABG HCO3 22 mmol/L (22-26); ABG PCO2 34 mmHg (35-45); ABG PH 7.42 (7.35-7.45); ABG PO2 112 mmHg (80-105); ABG TCO2 23
[2024-12-03 05:38] LABS: ABG HCO3 27 mmol/L (22-26); ABG PCO2 53 mmHg (35-45); ABG PH 7.31 (7.35-7.45); ABG PO2 168 mmHg (80-105); ABG TCO2 28
[2024-12-03 07:01] LABS: BASOPHILS % 0.3 % (0.0-1.0); EOSINOPHILS # (AUTO) 0.1 (0.0-0.4); EOSINOPHILS % 0.7 % (0.0-6.0); HEMOGLOBIN 9.4 g/dL (14.0-18.0); LYMPHOCYTES # (AUTO) 0.6 (1.0-3.2); MEAN CORPUSCULAR HEMOGLOBIN 31.1 pg (28-32); MEAN CORPUSCULAR HGB CONC 32.4 g/dL (31-35); MONOCYTES # (AUTO) 0.8 (0.2-0.8); MONOCYTES % 7.4 % (4.4-11.3); NEUTROPHILS % 85.1 % (38.7-80.0); PLATELET COUNT 191 x10e3/uL (140-360); RED BLOOD COUNT 3.02 x10e6/uL (4.3-5.7); WHITE BLOOD COUNT 10.57 x10e3/uL (4.8-10.8)
[2024-12-03 07:26] LABS: CALCIUM 8.7 mg/dL (8.4-10.2); CREATININE, SERUM 1.16 mg/dL (0.72-1.25)
[2024-12-03] MEDS: WATER STERILE 10 ML VIAL IM ONE (12:35)
[2024-12-03] MEDS: ZIPRASIDONE 20 MG VIAL IM STA (12:35)
[2024-12-03] MEDS: THIAMINE HCL INJ 100 MG/ML 2ML VIAL IV ONE ×2 (17:01→17:18)
[2024-12-03] MEDS ORDERED: THIAMINE HCL IV ONE (17:30)
[2024-12-03] MEDS ORDERED: SODIUM CHLORIDE 0.9% IV ONE (17:30)
[2024-12-04] VITALS (14 sets, daily range): BP systolic 125–131; BP diastolic 58–89; PULSE 52–78; RESP 14–23; TEMP 98–98.7; O2SAT 96–100
[2024-12-04] MEDS: NYSTATIN 100,000 UNITS/GM CRM 30GM TUBE TOP SCH (07:55)
[2024-12-04] MEDS: MUPIROCIN 2% OINT 22 GM TUBE TOP SCH (07:57)
[2024-12-04] MEDS: ARTIFICIAL TEARS (OPTH) 15 ML BTL OU PRN (13:05)
[2024-12-05] VITALS (27 sets, daily range): BP systolic 127–170; BP diastolic 53–77; PULSE 55–79; RESP 12–23; TEMP 98–98.4; O2SAT 84–100
[2024-12-05 07:37] LABS: BASOPHILS % 0.5 % (0.0-1.0); EOSINOPHILS # (AUTO) 0.2 (0.0-0.4); EOSINOPHILS % 2.4 % (0.0-6.0); HEMATOCRIT 29.9 % (38.2-49.6); HEMOGLOBIN 9.4 g/dL (14.0-18.0); LYMPHOCYTES # (AUTO) 0.8 (1.0-3.2); LYMPHOCYTES % 9.3 % (18.0-39.1); MEAN CORPUSCULAR HEMOGLOBIN 31.6 pg (28-32); MEAN CORPUSCULAR HGB CONC 31.4 g/dL (31-35); MEAN CORPUSCULAR VOLUME 100.7 fL (81-99); MONOCYTES # (AUTO) 0.6 (0.2-0.8); MONOCYTES % 6.5 % (4.4-11.3); NEUTROPHILS # (AUTO) 6.9 (2.1-6.9); NEUTROPHILS % 80.8 % (38.7-80.0); PLATELET COUNT 261 x10e3/uL (140-360); RED BLOOD COUNT 2.97 x10e6/uL (4.3-5.7); RED CELL DISTRIBUTION WIDTH 15.1 % (11.7-14.4); WHITE BLOOD COUNT 8.59 x10e3/uL (4.8-10.8)
[2024-12-05 08:05] LABS: ALBUMIN 2.5 g/dL (3.5-5.0); ALBUMIN/GLOBULIN RATIO 0.7 (0.8-2.0); BILIRUBIN,TOTAL 1.5 mg/dL (0.2-1.2); CALCIUM 8.7 mg/dL (8.4-10.2); CREATININE, SERUM 0.91 mg/dL (0.72-1.25); TOTAL PROTEIN 6.2 g/dL (6.5-8.1)
[2024-12-05] MEDS: BENZONATATE 100 MG CAP PO PRN (20:57)
[2024-12-06] VITALS (17 sets, daily range): BP systolic 106–161; BP diastolic 48–93; PULSE 56–73; RESP 14–24; TEMP 97.9–98.6; O2SAT 92–98
[2024-12-06] MEDS: ONDANSETRON HCL INJ 2MG/ML 2ML 2 MG/ML VIAL IV PRN (14:59)
[2024-12-06] MEDS: GUAIFENESIN 200 MG/10 ML UDC PO PRN (22:15)
[2024-12-07 04:00] VITALS: BP 137/75; PULSE 70; RESP 18; TEMP 97.8; O2SAT 98
[2024-12-07 08:27] VITALS: BP 135/65; PULSE 62; RESP 16; TEMP 98.2; O2SAT 97
[2024-12-07 09:00] VITALS: BP 135/65; PULSE 62; RESP 16; TEMP 98.2; O2SAT 97
[2024-12-07 11:42] VITALS: BP 145/72; PULSE 72; RESP 16; TEMP 98.1; O2SAT 99
== END 2024-12-07 14:15 | disposition home or self-care (01) | DRG 917 ==
LOC: ER 18:27 → ERHOLD 22:03 → ICU 23:39 → MED/SURG 12-06 12:55
PROVIDERS: ADMIT Internal Medicine; ATTEND Internal Medicine
PROC: 4A133R1 Monitoring of Arterial Saturation, Peripheral, Percutaneous Approach (ICD-10-PCS; principal; 2024-11-27)
PROC: 5A09357 Assistance with Respiratory Ventilation, Less than 24 Consecutive Hours, Continuous Positive Airway Pressure (ICD-10-PCS; 2024-11-27)
DX: T42.8X1A Poisoning by antiparkinsonism drugs and other central muscle-tone depressants, accidental (unintentional), initial encounter (principal); G92.8 Other toxic encephalopathy; J96.21 Acute and chronic respiratory failure with hypoxia; J96.22 Acute and chronic respiratory failure with hypercapnia; R53.2 Functional quadriplegia; J69.0 Pneumonitis due to inhalation of food and vomit; E44.0 Moderate protein-calorie malnutrition; E87.1 Hypo-osmolality and hyponatremia; N17.9 Acute kidney failure, unspecified; Z66 Do not resuscitate; E86.0 Dehydration; E11.42 Type 2 diabetes mellitus with diabetic polyneuropathy; I12.9 Hypertensive chronic kidney disease with stage 1 through stage 4 chronic kidney disease, or unspecified chronic kidney disease; E11.22 Type 2 diabetes mellitus with diabetic chronic kidney disease; T44.7X1A Poisoning by beta-adrenoreceptor antagonists, accidental (unintentional), initial encounter; E03.9 Hypothyroidism, unspecified; N18.9 Chronic kidney disease, unspecified; G47.33 Obstructive sleep apnea (adult) (pediatric); F45.8 Other somatoform disorders; M54.9 Dorsalgia, unspecified; N40.0 Benign prostatic hyperplasia without lower urinary tract symptoms; E87.5 Hyperkalemia; R00.1 Bradycardia, unspecified; G89.4 Chronic pain syndrome; Z68.32 Body mass index [BMI] 32.0-32.9, adult; Z79.890 Hormone replacement therapy; Z79.84 Long term (current) use of oral hypoglycemic drugs; Z90.49 Acquired absence of other specified parts of digestive tract
CPT/HCPCS: 36415; 36600; 70450; 71045; 71260; 74177; 80048; 80053; 80061; 80307; 80320; 80329; 81001; 82140; 82805; 82948; 83036; 83690; 83735; 84100; 84443; 84484; 85025; 85610; 85730; 87040; 93005; 93970; 93971; 94660; 94799; 95822; 96372; 99252; 99284; J1650; J2405; J2470; J2543; J3411; J3486; J7030; J7042; J7050; J7799; Q9967

== ENCOUNTER 2024-12-19 00:58 | Emergency (ER) | payer MEDICARE ==
[~2024-12-19] VITALS: Ht 182.9 cm; Wt 84.8 kg
[2024-12-19 01:00] VITALS: PULSE 82; RESP 17; TEMP 97.6
[2024-12-19] MEDS ORDERED: DOXYCYCLINE HY100 MG PO (01:33)
[2024-12-19 01:37] VITALS: BP 144/70; PULSE 82; RESP 17; TEMP 97.6; O2SAT 96
== END 2024-12-19 01:40 | disposition home or self-care (01) ==
LOC: FSED 01:04
DX: L03.116 Cellulitis of left lower limb (principal); W20.8XXA Other cause of strike by thrown, projected or falling object, initial encounter; Y92.89 Other specified places as the place of occurrence of the external cause; I12.9 Hypertensive chronic kidney disease with stage 1 through stage 4 chronic kidney disease, or unspecified chronic kidney disease; E11.22 Type 2 diabetes mellitus with diabetic chronic kidney disease; N18.9 Chronic kidney disease, unspecified; G83.89 Other specified paralytic syndromes
CPT/HCPCS: 99284

== ENCOUNTER 2025-05-02 21:18 | Inpatient (IN) | payer MEDICARE ==
[~2025-05-02] VITALS: Ht 182.9 cm; Wt 104.3 kg
[~2025-05-02 21:18] MED LIST changes: +DOXYCYCLINE HY100 MG PO
[2025-05-02 23:13] LABS: BASOPHILS % 0.3 % (0.0-1.0); EOSINOPHILS % 0.7 % (0.0-6.0); LYMPHOCYTES % 10.7 % (18.0-39.1); MONOCYTES % 8.9 % (4.4-11.3); NEUTROPHILS % 79.1 % (38.7-80.0); RED CELL DISTRIBUTION WIDTH 16.6 % (11.7-14.4)
[2025-05-02] MEDS: Vancomycin IV 1 GM in SODIUM CHLORIDE 0.9% 250ML 250 ML IV ONE (23:30)
[2025-05-02 23:36] LABS: EST GLOMERULAR FILTRATION RATE 53.0 ML/MIN (>=60)
[2025-05-03] VITALS (24 sets, daily range): BP systolic 75–144; BP diastolic 46–82; PULSE 33–57; RESP 9–18; TEMP 96.8–98.3; O2SAT 95–100
[2025-05-03] MEDS: Vancomycin IV 1 GM in SODIUM CHLORIDE 0.9% 250ML 250 ML IV SCH (00:30)
[2025-05-03] MEDS ORDERED: ONDANSETRON HCL INJ 2MG/ML 2ML 2 MG/ML VIAL IV PRN (00:30)
[2025-05-03] MEDS ORDERED: SODIUM CHLORIDE FLUSH 10 ML SYR INJ PRN (00:30)
[2025-05-03] MEDS ORDERED: DEXTROSE 50% SYRINGE 50 ML IV PRN (00:30)
[2025-05-03] MEDS: INSULIN REGULAR, HUMAN 100 UNIT/1 ML SQ SCH (08:47)
[2025-05-03] MEDS ORDERED: HYDRALAZINE HCL 20 MG/ML VIAL IV PRN (09:15)
[2025-05-03] MEDS ORDERED: POTASSIUM CHLORIDE 20 MEQ TAB CR PO PRN (09:15)
[2025-05-03] MEDS ORDERED: BENZONATATE 100 MG CAP PO PRN (09:15)
[2025-05-03] MEDS ORDERED: SIMETHICONE 80 MG CHEW PO PRN (09:15)
[2025-05-03] MEDS ORDERED: MELATONIN 5 MG TABLET PO PRN (09:15)
[2025-05-03] MEDS: MUPIROCIN 2% OINT 22 GM TUBE TOP SCH (11:03)
[2025-05-03] MEDS ORDERED: PIPERACILLIN/TAZOBACTAM 3.375 GM VIAL ONE (12:25)
[2025-05-03] MEDS ORDERED: LEVOTHYROXINE50 MC1 (16:10)
[2025-05-03] MEDS: ENOXAPARIN SOD INJ 40 MG/0.4 ML SYR SC SCH (16:47)
[2025-05-03] MEDS: TAMSULOSIN HCL 0.4 MG CAP PO SCH (16:53)
[2025-05-04] VITALS (40 sets, daily range): BP systolic 65–156; BP diastolic 42–96; PULSE 42–76; RESP 9–22; TEMP 95.9–97.1; O2SAT 91–100
[2025-05-04] MEDS: PANTOPRAZOLE SOD 40 MG TABEC PO SCH (09:06)
[2025-05-04] MEDS: ACETAMINOPHEN 325 MG TAB PO PRN (09:06)
[2025-05-04] MEDS: HYDROXYZINE HCL 25 MG TAB PO PRN (09:06)
[2025-05-04] MEDS: LIDOCAINE 4% PATCH TP PRN (09:06)
[2025-05-04] MEDS: BACLOFEN 10 MG TAB PO SCH (09:06)
[2025-05-04] MEDS: DOCUSATE SODIUM 100 MG CAP PO PRN (09:07)
[2025-05-04] MEDS: ROPINIROLE HCL 1 MG TAB PO SCH ×2 (09:08→17:34)
[2025-05-04] MEDS: ALBUTEROL/IPRATROPIUM 3 ML NEB NEB PRN (09:44)
[2025-05-04 10:24] LABS: BASOPHILS % 0.2 % (0.0-1.0); EOSINOPHILS % 0.2 % (0.0-6.0); LYMPHOCYTES % 4.6 % (18.0-39.1); MONOCYTES % 5.7 % (4.4-11.3); NEUTROPHILS % 89.1 % (38.7-80.0); RED CELL DISTRIBUTION WIDTH 16.1 % (11.7-14.4)
[2025-05-04 10:51] LABS: EST GLOMERULAR FILTRATION RATE 56.0 ML/MIN (>=60)
[2025-05-04] MEDS: FUROSEMIDE INJ 100 MG in SODIUM CHLORIDE 0.9% 90 ML IV SCH (13:57)
[2025-05-04] MEDS ORDERED: HYDROCODONE/APAP 5MG-325MG TAB PO PRN (14:30)
[2025-05-04] MEDS: DIPHENHYDRAMINE HCL 25 MG CAP PO PRN (15:05)
[2025-05-04] MEDS: TORSEMIDE 10 MG TAB PO SCH (17:32)
[2025-05-04 18:17] LABS: BAND NEUTROPHILS % (MANUAL) 9 %; LYMPHOCYTES % (MANUAL) 4 % (19-48); MONOCYTES % (MANUAL) 9 % (3.4-9.0); NEUTROPHILS % (MANUAL) 78 % (40-74)
[2025-05-04 18:18] LABS: PLATELET ESTIMATE ADEQUATE; PLATELET MORPHOLOGY COMMENT NORMAL; RBC MORPHOLOGY COMMENT NORMAL
[2025-05-04] MEDS: SODIUM CHLORIDE 0.9% 1000ML 1,000 ML IV ONE (19:42)
[2025-05-04] MEDS: MIDODRINE 2.5 MG TAB PO SCH ×2 (19:51→22:00)
[2025-05-04 20:25] LABS: BASOPHILS % 0.3 % (0.0-1.0); EOSINOPHILS % 0.7 % (0.0-6.0); LYMPHOCYTES % 8.1 % (18.0-39.1); MONOCYTES % 6.6 % (4.4-11.3); NEUTROPHILS % 84.0 % (38.7-80.0); RED CELL DISTRIBUTION WIDTH 16.2 % (11.7-14.4)
[2025-05-04 20:43] LABS: EST GLOMERULAR FILTRATION RATE 47.0 ML/MIN (>=60)
[2025-05-04] MEDS: INSULIN GLARGINE 100 UNITS/ML VIAL SQ SCH (21:00)
[2025-05-04] MEDS: MUPIROCIN 2% OINT 22 GM TUBE TOP SCH (21:00)
[2025-05-05] VITALS (47 sets, daily range): BP systolic 78–157; BP diastolic 40–104; PULSE 43–79; RESP 8–20; TEMP 97.1–99; O2SAT 93–100
[2025-05-05] MEDS: NOREPINEPHRINE 8 MG/D5W 250 ML 250 ML IV SCH (02:30)
[2025-05-05 06:36] LABS: BASOPHILS % 0.4 % (0.0-1.0); EOSINOPHILS % 0.7 % (0.0-6.0); LYMPHOCYTES % 8.0 % (18.0-39.1); MONOCYTES % 7.5 % (4.4-11.3); NEUTROPHILS % 83.1 % (38.7-80.0); RED CELL DISTRIBUTION WIDTH 16.3 % (11.7-14.4)
[2025-05-05 06:47] LABS: EST GLOMERULAR FILTRATION RATE 54.0 ML/MIN (>=60)
[2025-05-05] MEDS: ROPINIROLE HCL 1 MG TAB PO SCH (12:49)
[2025-05-05] MEDS: SODIUM CHLORIDE 0.9% 250ML 250 ML ONE (17:01)
[2025-05-05] MEDS: MIDODRINE 2.5 MG TAB PO SCH (17:34)
[2025-05-05 18:18] LABS: EST GLOMERULAR FILTRATION RATE 50.0 ML/MIN (>=60)
[2025-05-05] MEDS ORDERED: ALBUTEROL/IPRATROPIUM 3 ML NEB NEB SCH (22:00)
[2025-05-05 22:28] LABS: ABG BASE EXCESS 5.0 mmol/L (-2 - 3); ABG HCO3 30 mmol/L (22-26); ABG OXYGEN SATURATION 99.0 % (95-98); ABG PCO2 54 mmHg (35-45); ABG PH 7.36 (7.35-7.45); ABG PO2 126 mmHg (80-105); ABG TCO2 32
[2025-05-06] VITALS (11 sets, daily range): BP systolic 137–172; BP diastolic 62–86; PULSE 66–92; RESP 16–20; TEMP 97.2–98.5; O2SAT 78–100
[2025-05-06 06:34] LABS: BASOPHILS % 0.4 % (0.0-1.0); EOSINOPHILS % 0.7 % (0.0-6.0); LYMPHOCYTES % 13.7 % (18.0-39.1); MONOCYTES % 7.0 % (4.4-11.3); NEUTROPHILS % 78.0 % (38.7-80.0); RED CELL DISTRIBUTION WIDTH 16.5 % (11.7-14.4)
[2025-05-06 07:05] LABS: EST GLOMERULAR FILTRATION RATE 57.0 ML/MIN (>=60)
[2025-05-06] MEDS: DEXTROSE 50% SYRINGE 50 ML IV PRN (07:16)
[2025-05-06] MEDS ORDERED: TORSEMIDE 10 MG TAB PO SCH (13:30)
[2025-05-06] MEDS: METHYLPREDNISOLONE SOD SUCC 40 MG/ML VIAL 1ML IV SCH (13:32)
[2025-05-06] MEDS: FLUTICASONE PROPIONATE NASAL SPRAY NS SCH (13:41)
[2025-05-06] MEDS: DOCUSATE SODIUM 100 MG CAP PO SCH (17:00)
[2025-05-06] MEDS: LACTULOSE SYRUP 20 GM/30 ML UDC PO SCH (17:01)
[2025-05-06] MEDS: TORSEMIDE 10 MG TAB PO SCH (17:02)
[2025-05-06] MEDS: Vancomycin IV 1 GM in SODIUM CHLORIDE 0.9% 250ML 250 ML IV SCH (17:02)
[2025-05-06] MEDS ORDERED: MIDODRINE 2.5 MG TAB PO SCH (18:00)
[2025-05-06] MEDS ORDERED: DEXTROSE 5%/0.9% SOD CHL 1,000 ML IV SCH (19:15)
[2025-05-06] MEDS: INSULIN GLARGINE 100 UNITS/ML VIAL SQ SCH (22:03)
[2025-05-06] MEDS: BISACODYL 10 MG SUPP PR ONE ×2 (22:59→23:00)
[2025-05-07] VITALS (10 sets, daily range): BP systolic 126–145; BP diastolic 62–85; PULSE 71–101; RESP 12–19; TEMP 97.8–99.8; O2SAT 96–98
[2025-05-07 06:13] LABS: BASOPHILS % 0.2 % (0.0-1.0); EOSINOPHILS % 0.0 % (0.0-6.0); LYMPHOCYTES % 9.3 % (18.0-39.1); MONOCYTES % 0.4 % (4.4-11.3); NEUTROPHILS % 89.5 % (38.7-80.0); RED CELL DISTRIBUTION WIDTH 16.4 % (11.7-14.4)
[2025-05-07 06:22] LABS: EST GLOMERULAR FILTRATION RATE 55.0 ML/MIN (>=60)
[2025-05-08] VITALS (10 sets, daily range): BP systolic 120–169; BP diastolic 58–79; PULSE 56–75; RESP 16–20; TEMP 97.6–98.8; O2SAT 94–100
[2025-05-08 06:22] LABS: BASOPHILS % 0.1 % (0.0-1.0); EOSINOPHILS % 0.0 % (0.0-6.0); LYMPHOCYTES % 6.5 % (18.0-39.1); MONOCYTES % 1.8 % (4.4-11.3); NEUTROPHILS % 91.2 % (38.7-80.0); RED CELL DISTRIBUTION WIDTH 16.7 % (11.7-14.4)
[2025-05-08 06:38] LABS: EST GLOMERULAR FILTRATION RATE 52.0 ML/MIN (>=60)
[2025-05-08] MEDS: BACLOFEN 10 MG TAB PO SCH (15:15)
[2025-05-08] MEDS: ROPINIROLE HCL 1 MG TAB PO SCH (21:02)
[2025-05-09 03:56] VITALS: PULSE 62; RESP 16; O2SAT 92
[2025-05-09 04:00] VITALS: BP 117/62; PULSE 71; RESP 16; TEMP 98.1; O2SAT 94
[2025-05-09 06:17] LABS: BASOPHILS % 0.2 % (0.0-1.0); EOSINOPHILS % 0.1 % (0.0-6.0); LYMPHOCYTES % 8.9 % (18.0-39.1); MONOCYTES % 9.4 % (4.4-11.3); NEUTROPHILS % 81.0 % (38.7-80.0); RED CELL DISTRIBUTION WIDTH 16.8 % (11.7-14.4)
[2025-05-09 06:56] LABS: EST GLOMERULAR FILTRATION RATE 59.0 ML/MIN (>=60)
[2025-05-09 07:51] VITALS: PULSE 64; RESP 16; O2SAT 97
[2025-05-09 09:00] VITALS: BP 128/53; PULSE 67; RESP 16; TEMP 98.5; O2SAT 92
[2025-05-09 12:15] VITALS: BP 133/52; PULSE 59; RESP 16; TEMP 98.8; O2SAT 94
[2025-05-09 13:12] VITALS: PULSE 65; RESP 16; O2SAT 94
[2025-05-09] MEDS ORDERED: BACLOFEN10 MG PO (13:24)
[2025-05-09] MEDS ORDERED: CEPHALEXIN500 MG PO (13:26)
[2025-05-14 06:35] LABS: ABG BASE EXCESS 5.0 mmol/L (-2 - 3); ABG HCO3 30 mmol/L (22-26); ABG OXYGEN SATURATION 99.0 % (95-98); ABG PCO2 54 mmHg (35-45); ABG PH 7.36 (7.35-7.45); ABG PO2 126 mmHg (80-105); ABG TCO2 32
== END 2025-05-09 15:40 | disposition home or self-care (01) | DRG 862 ==
LOC: ER 23:09 → ERHOLD 05-03 00:24 → ICU 05-03 09:29 → MED/SURG2 05-05 16:31
PROVIDERS: ADMIT Internal Medicine; ATTEND Internal Medicine
PROC: 05HY33Z Insertion of Infusion Device into Upper Vein, Percutaneous Approach (ICD-10-PCS; principal; 2025-05-04)
PROC: 3E033XZ Introduction of Vasopressor into Peripheral Vein, Percutaneous Approach (ICD-10-PCS; 2025-05-04)
PROC: 4A033B1 Measurement of Arterial Pressure, Peripheral, Percutaneous Approach (ICD-10-PCS; 2025-05-05)
PROC: 0D9670Z Drainage of Stomach with Drainage Device, Via Natural or Artificial Opening (ICD-10-PCS; 2025-05-06)
DX: T81.44XA Sepsis following a procedure, initial encounter (principal); A41.9 Sepsis, unspecified organism; G93.41 Metabolic encephalopathy; J69.0 Pneumonitis due to inhalation of food and vomit; J96.01 Acute respiratory failure with hypoxia; R53.2 Functional quadriplegia; T81.12XA Postprocedural septic shock, initial encounter; L03.116 Cellulitis of left lower limb; N17.9 Acute kidney failure, unspecified; E87.1 Hypo-osmolality and hyponatremia; K56.7 Ileus, unspecified; E03.9 Hypothyroidism, unspecified; R00.1 Bradycardia, unspecified; E78.00 Pure hypercholesterolemia, unspecified; I87.2 Venous insufficiency (chronic) (peripheral); R01.1 Cardiac murmur, unspecified; R60.1 Generalized edema; D64.9 Anemia, unspecified; E11.22 Type 2 diabetes mellitus with diabetic chronic kidney disease; N18.31 Chronic kidney disease, stage 3a; E11.40 Type 2 diabetes mellitus with diabetic neuropathy, unspecified; N40.1 Benign prostatic hyperplasia with lower urinary tract symptoms; I95.9 Hypotension, unspecified; M54.30 Sciatica, unspecified side; E87.5 Hyperkalemia; F45.8 Other somatoform disorders; R59.0 Localized enlarged lymph nodes; G47.33 Obstructive sleep apnea (adult) (pediatric); E11.649 Type 2 diabetes mellitus with hypoglycemia without coma; E66.01 Morbid (severe) obesity due to excess calories; L89.159 Pressure ulcer of sacral region, unspecified stage; Y83.8 Other surgical procedures as the cause of abnormal reaction of the patient, or of later complication, without mention of misadventure at the time of the procedure; Y82.8 Other medical devices associated with adverse incidents; Z79.84 Long term (current) use of oral hypoglycemic drugs; Z87.828 Personal history of other (healed) physical injury and trauma; Z86.718 Personal history of other venous thrombosis and embolism; Z74.01 Bed confinement status; Z68.31 Body mass index [BMI] 31.0-31.9, adult
CPT/HCPCS: 36415; 36569; 36600; 71045; 74018; 80048; 80053; 80202; 82140; 82805; 82948; 83036; 83605; 83735; 84443; 85025; 87040; 87086; 93005; 93306; 93926; 93971; 94640; 94799; 96372; 99252; 99285; J0696; J1650; J1815; J1940; J2185; J2470; J2543; J2919; J3373; J3410; J7030; J7042; J7050; J7799

== ENCOUNTER 2025-06-06 07:19 | Emergency (ER) | payer MEDICARE ==
[~2025-06-06 07:19] MED LIST changes: +BACLOFEN10 MG PO; +CEPHALEXIN500 MG PO; +LEVOTHYROXINE50 MC1
[2025-06-06 07:42] VITALS: PULSE 62; RESP 15; TEMP 96.5
[2025-06-06 08:18] LABS: BASOPHILS % 0.3 % (0.0-1.0); EOSINOPHILS % 0.6 % (0.0-6.0); LYMPHOCYTES % 12.5 % (18.0-39.1); MONOCYTES % 5.7 % (4.4-11.3); NEUTROPHILS % 80.6 % (38.7-80.0); RED CELL DISTRIBUTION WIDTH 16.6 % (11.7-14.4)
[2025-06-06 08:38] LABS: EPITHELIAL CELLS,URINE FEW /LPF; LEUKOCYTE ESTERASE ,URINE NEGATIVE (NEGATIVE); PROTEIN,URINE DIPSTICK NEGATIVE (NEGATIVE); URINE UROBILINOGEN 0.2 mg/dL (0.2 - 1); WBC,URINE (MAN) 0-5 /HPF (0-5)
[2025-06-06 08:44] LABS: EST GLOMERULAR FILTRATION RATE 59.0 ML/MIN (>=60)
[2025-06-06] MEDS ORDERED: IOPAMIDOL 370 MG/ML 100 ML INFUS..BTL INJ ONE (09:01)
[2025-06-06] MEDS ORDERED: SODIUM CHLORIDE 0.9% 100 ML ONE (09:01)
[2025-06-06] MEDS: SODIUM CHLORIDE 0.9% 1000ML 1,000 ML IV ONE (09:34)
[2025-06-06] MEDS ORDERED: COLACE100 M1 PO (10:56)
[2025-06-06 12:55] VITALS: BP 152/77; PULSE 59; RESP 17; TEMP 97.4; O2SAT 100
== END 2025-06-06 12:57 | disposition home or self-care (01) ==
LOC: ER 07:24
DX: R14.0 Abdominal distension (gaseous) (principal); K59.00 Constipation, unspecified; E11.9 Type 2 diabetes mellitus without complications; E03.9 Hypothyroidism, unspecified
CPT/HCPCS: 36415; 74177; 80053; 81001; 82948; 83690; 85025; 99284; J7030; J7050; Q9967

== ENCOUNTER 2025-06-11 22:18 | Emergency (ER) | payer MEDICARE ==
[~2025-06-11] VITALS: Ht 200.7 cm; Wt 96.2 kg
[~2025-06-11 22:18] MED LIST changes: +COLACE100 M1 PO
[2025-06-12 00:59] LABS: BASOPHILS % 0.4 % (0.0-1.0); EOSINOPHILS % 1.6 % (0.0-6.0); LYMPHOCYTES % 14.1 % (18.0-39.1); MONOCYTES % 6.6 % (4.4-11.3); NEUTROPHILS % 76.9 % (38.7-80.0); RED CELL DISTRIBUTION WIDTH 17.0 % (11.7-14.4)
[2025-06-12 01:19] LABS: EST GLOMERULAR FILTRATION RATE 51.0 ML/MIN (>=60)
[2025-06-12] MEDS ORDERED: HYDROCODONE/APAP 7.5MG-325MG 1 EA TAB ONE (01:19)
[2025-06-12] MEDS: HYDROCODONE/APAP 7.5MG-325MG 1 EA TAB PO ONE (01:23)
[2025-06-12 01:46] VITALS: PULSE 67; RESP 18; TEMP 97.5
[2025-06-12 02:30] VITALS: BP 126/69; O2SAT 98
== END 2025-06-12 02:20 | disposition home or self-care (01) ==
LOC: ER 06-12 00:16
DX: R51.9 Headache, unspecified (principal); K04.7 Periapical abscess without sinus; E11.65 Type 2 diabetes mellitus with hyperglycemia; G82.20 Paraplegia, unspecified
CPT/HCPCS: 36415; 70450; 80053; 83735; 85025; 99284